=== PATIENT | female | born 1950 | race Caucasian/White ===

== ENCOUNTER → 2019-09-10 13:16 | Outpatient (CLI) | payer MEDICARE, OTHER, SELFPAY ==
--- NOTE | 2019-09-10 13:22 | CT_ITS ---
STUDY: CT MAXILLOFACIAL SINUSES REASON FOR EXAM: Female, 69 years old. Nasal polyp, headaches, left orbital pressure RADIATION DOSAGE (If Supplied By Facility): CTDIvol = ( 33.45 ) mGy, DLP = ( 759.64 ) mGycm TECHNIQUE: The patient was scanned in a multi detector CT scanner. High resolution axial imaging was performed without the administration of intravenous contrast material. Sagittal and coronal images were reconstructed. Individualized dose optimization techniques were used for this CT. COMPARISON: None. FINDINGS: FRONTAL SINUSES: The frontal sinuses are aplastic. ETHMOIDAL SINUSES: Normal aeration, without mucosal inflammatory disease. MAXILLARY SINUSES: Normal aeration, without mucosal inflammatory disease. SPHENOIDAL SINUSES: Normal aeration, without mucosal inflammatory disease. There is patency of the bilateral maxillary infundibuli with normal uncinate processes, ethmoid bullae, and hiatus semilunaris. Normal bilateral middle turbinates. Normal bilateral inferior turbinates. There is minimal nasal septal deviation toward the right. There is a polypoid filling defect of the anterior left nasal cavity measuring 2.1 x 1.1 x 2.3 cm. The visualized osseous structures are normal. The visualized bilateral orbital contents are normal. CT/Sinus/Facial Bone IMPRESSION: 1. Aplastic frontal sinuses. 2. There is a polypoid filling defect of the anterior left nasal cavity measuring 2.1 x 1.1 x 2.3 cm consistent with polyp. There is minimal associated nasal septal deviation toward the right. Electronically Signed: Daniel Pearce MD at 20:36 EST , Service support ,
--- NOTE | 2019-09-10 13:23 | RAD_ITS ---
STUDY: X-RAY - LEFT KNEE REASON FOR EXAM: Female, 69 years old. Left knee pain TECHNIQUE: 4 view(s) of the knee. COMPARISON: None. FINDINGS: Status post total left knee replacement changes seen with implants appearing in good position. There is no evidence of implant loosening or new associated fracture or dislocation. There is a small crescentic soft tissue calcification adjacent to the medial femoral epicondyles which may represent a Jerrell-Stieda calcification. RAD/Knee 4 or More Views IMPRESSION: Status post total left knee replacement changes seen with implants appearing in good position. No evidence of implant loosening or new associated fracture or dislocation. Small crescentic calcification adjacent to the medial femoral epicondyle which may represent a Jerrell-Stieda calcification. Electronically Signed: Daniel Pearce MD at 20:39 EST , Service support ,
== END ==
PROVIDERS: Family Provider Family Medicine; PCP Family Medicine; Referring Provider Otolaryngology; Visit Provider Otolaryngology
DX: J33.9 Nasal polyp, unspecified (principal); R51 Headache; M25.562 Pain in left knee
CPT/HCPCS: 70486; 73564

== ENCOUNTER → 2019-09-22 15:32 | Outpatient (CLI) | payer MEDICARE, OTHER, SELFPAY ==
[2017-08-21 19:38] VITALS: BMI 32.4
--- NOTE | 2019-09-22 10:00 | NAPO_PTH ---
PATIENT: CHRISTINE KUMAR LOC: [facility] U#:[id number] AGE/SX: 75/F ROOM: RE09/22/[address]: Dr. Erik Valverde MD : 1950 BED: DIS: SPEC #: [id number] RECD: 09/22/19 15:00 STATUS: ONESIMO RONIT #: [id number] [facility]: 09/22/19 10:[address]: Erik Valverde DEPT: SURGICAL PATHOLOGY RECD BY: Velma Mccormick ENTERED: 09/23/19 11:54 SP TYPE: IZAIAH POLYPS OTHR DR: Dr. Khanh Vidal MD Tissues: NASAL POLYP Procedures: PAS Fungus (control) Special Stain Group I Surgery Specimen Level IV HEADER OPERATION: Nasal polyp biopsy PRE-OP DIAGNOSIS: Left nasal polyp TISSUE SUBMITTED: Left nasal polyp for permanent pathology MICROSCOPIC DIAGNOSIS Nasal polyp, biopsy: A fragment of squamous mucosa with changes consistent with squamous papilloma with focal ulceration, acute inflammation, granulation tissue reaction and changes consistent with pyogenic granuloma. Special stain for fungi is negative for organisms; matched control is appropriate. Negative for malignancy. MARY GRACE:kary 09/24/19 MICROSCOPIC DESCRIPTION Slides are reviewed. GROSS DESCRIPTION Received in fixative is one container labeled with the patient's name and designated left nasal polyp. The specimen consists of a fragment of vo soft tissue measuring 0.4 x 0.3 x 0.1 cm. The specimen is totally submitted in one cassette. / MARY GRACE:kary 09/23/19 TC:1 CPT: 09198, 78546
== END ==
PROVIDERS: Family Provider Family Medicine; PCP Family Medicine; Referring Provider Otolaryngology; Visit Provider Otolaryngology
DX: J33.9 Nasal polyp, unspecified (principal)
CPT/HCPCS: 88304; 88305; 88312

== ENCOUNTER 2019-11-09 09:36 | Day surgery (SDC) | payer MEDICARE, OTHER, SELFPAY ==
--- NOTE | 2019-10-08 11:21 | EKG12_ITS ---
Test Reason : PRE OP Blood Pressure : / mmHG Vent. Rate : 071 BPM Atrial Rate : 071 BPM P-R Int : 158 ms QRS Dur : 084 ms QT Int : 386 ms P-R-T Axes : 049 043 074 degrees QTc Int : 419 ms Normal sinus rhythm Normal ECG Confirmed by LUCILLE SWENSON, SUNI ([id number]), senior editor KEN VELIZ ([id number]) on 10/09/2019 2:12:54 PM Referred By: Erik Valverde Confirmed By:SUNI ADKINS MD
[2019-10-08 13:17] LABS: Hematocrit 42.2 % (37-47); Hemoglobin 14.1 g/dL (12.0-15.0); Mean Corp Hgb Conc 33.4 g/dL (32-36); Mean Corpuscular Hgb 31.1 pg (27.0-32.0); Mean Platelet Vol. 11.2 fl (6.2-12.0); Platelet Count 325 K/mm3 (150-450); RBC Distribution Width CV 12.4 % (11.6-14.6); RBC Distribution Width SD 42.5 fl (35.1-43.9); Red Blood Count 4.54 M/mm3 (4.2-5.4); White Blood Count 16.4 K/mm3 (4.4-11.0)
[2019-10-08 13:35] LABS: Anion Gap 6 (5-15); BUN 19 mg/dL (7-18); BUN/Creat Ratio 24.2 RATIO (10-20); Calcium,Total 8.5 mg/dL (8.5-10.1); Chloride 95 mmol/L (98-107); Creatinine, Serum 0.78 mg/dL (0.55-1.02); EST Glomerular Filtration Rate 77 mL/min (>60); Est Glom Filt Rate - Afr Amer 94 mL/min (>60); Glucose 63 mg/dL (74-106); Potassium 3.4 mmol/L (3.5-5.1); Sodium Level 131 mmol/L (136-145)
[2019-11-09 10:03] VITALS: BP 130/67; PULSE 73; RESP 16; TEMP 36.4; O2SAT 96; BMI 28.5
[2019-11-09] MEDS: Lactated Ringers 1,000 ML 100 ML IV (10:18)
--- NOTE | 2019-11-09 11:20 | NAPO_PTH ---
PATIENT: CHRISTINE KUMAR LOC: [facility] [place] U[place][id number] AGE/SX: 69/F ROOM: RE11/09/[address]: Dr. Erik Valvedre MD : 1950 BED: DIS: 11/09/2019 SPEC #: [id number] RECD: 11/09/19 13:21 STATUS: ONESIMO RONIT #: [id number] [facility]: 11/09/19 11:[address]: Erik Valverde DEPT: SURGICAL PATHOLOGY RECD BY: Eriberto Rush ENTERED: 11/09/19 13:41 SP TYPE: IZAIAH POLYPS OTHR DR: Dr. Khanh Vidal MD Tissues: NASAL POLYP Procedures: Surgery Specimen Level III HEADER OPERATION: Endoscopic polypectomy PRE-OP DIAGNOSIS: Nasal cavity polyp, chronic sinusitis TISSUE SUBMITTED: Left medial turbinate neoplasm MICROSCOPIC DIAGNOSIS Left medial turbinate polyp, excision: Benign sinonasal polyp, inflamed. AM:kary 2/4/20 MICROSCOPIC DESCRIPTION Slides are reviewed. GROSS DESCRIPTION Received in fixative is one container labeled with the patient's name and designated medial turbinate neoplasm. The specimen consists of a glistening, polypoid fragment of vo tissue measuring 1.7 x 1.5 x 0.3 cm. The specimen is submitted in its entirety in one cassette. / AM:kary 11/09/19 TC:1 CPT: 33068
--- NOTE | 2019-11-09 11:27 | DCINST_ITS ---
You will use the following diet at home:: No restrictions Discharge Activity: Return to Normal Activity, - - No noseblowing Additional Activity Instructions:: Start saline irrigation 4x/day on 11/10/19. Allergies/Adverse Reactions: Allergies adhesive Allergy (Verified 11/09/19 10:03) Rash codeine Allergy (Verified 11/09/19 10:03) Hives fish oil Allergy (Verified 11/09/19 10:03) Anaphylaxis Iodinated Contrast Media [Iodinated Contrast Media - IV Dye] Allergy (Verified 11/09/19 10:03) Anaphylaxis Penicillins Allergy (Verified 11/09/19 10:03) Unknown Sulfa (Sulfonamide Antibiotics) Allergy (Verified 11/09/19 10:03) Hives azithromycin [From Zithromax Z-Mariusz] Adverse Reaction (Verified 11/09/19 10:03) Vomiting trazodone Adverse Reaction (Verified 11/09/19 10:03) SUICIDIAL Medications to take at Discharge Atorvastatin Calcium [Lipitor] 10 mg PO QHS 10/26/16 Duloxetine HCl 30 mg PO QHS 10/26/16 Duloxetine HCl 60 mg PO DAILY 10/26/16 Estradiol 1 mg PO DAILY 10/26/16 Gabapentin [Neurontin] 900 mg PO QHS 10/26/16 Meloxicam [Mobic] 15 mg PO DAILY 10/26/16 Oxybutynin [Ditropan] 10 mg PO QHS 10/26/16 cycloBENZAPRine HCl [Flexeril] 10 mg PO QHS 10/26/16 hydroCHLOROthiazide [Hydrochlorothiazide] 12.5 mg PO DAILY 10/26/16 Hydrocodone/Acetaminophen [Hydrocodone-Acetamin 10-325 mg] 1 ea PO Q8H PRN PRN 10/27/16 Latanoprost 0.005% [Xalatan Opthalmic] 1 drp EACHEYE QHS 08/21/17 zolpidem 5 mg tablet 5 mg PO QHS PRN 02/20/18 Primary Care Physician: Khanh Vidal MD [Primary Care Provider] - Test Results: Test results from this visit will be discussed in further detail at your follow- up appointment, if applicable.
[2019-11-09] MEDS: Oxymetazoline 0.05% 1 SPRAY SPRAY.BTL NASAL (12:00)
[2019-11-09] MEDS: Oxymetazoline 0.05% 1 SPRAY SPRAY.BTL 15 SPRAY (12:00)
--- NOTE | 2019-11-09 12:09 | PCM.OPRPT ---
Report of Operation Date of Procedure: 11/09/19 Pre-Operative Diagnosis: Left nasal polyp Post-Operative Diagnosis: same Surgery/Procedure Performed:: Endoscopic excision nasal mass (attached to left middle turbinate) Description of Surgical Findings:: Mass on left middle turbinate Type of Anesthesia:: General Anesthesiologist: Cali Hilliard Specimen's removed: left middle turbinate neoplasm Estimated Blood Loss (mL): minimal Description of Procedure: The patient was taken to the operating room on 11/09/19. She was placed in the supine position on the operating table. She was given sufficient general endotracheal anesthesia. The head of bed was elevated 30 degrees. The navigation system was placed and verified per protocol and found to be accurate. 0 and 30 degrees rigid nasal endoscopes were used throughout the entire case. The left middle turbinate uncinate process and polyps were injected with 1% lidocaine with epinephrine. After sufficient vasoconstriction, the mass was manipulated to see that it was emanating from the front face of the left middle turbinate. Again, a 0 degree rigid nasal endoscope was used for visualization. I then used a caudal elevator to excise the mucosa on the front face of the middle turbinate connecting the middle turbinate to the mass. I then went superiorly with the [place] and made incisions superiorly until they were connected. The mass was then removed with Jamie forceps. I then trimmed the mucosa of the anterior aspect of the middle turbinate using a sinus shaver. I cauterized a few bleeding areas with suction cautery. Suzy was then placed on the raw surface. The procedure was then terminated. The patient was then awoken and brought to the recovery room in stable condition. Blood loss minimal, replacement none. Sponge, needle, instrument count were correct at the end of the procedure.
[2019-11-09 12:17] VITALS: BP 120/64; BP 130/67; PULSE 79; RESP 20; TEMP 37; O2SAT 96
[2019-11-09 12:30] VITALS: BP 124/60; BP 130/67; PULSE 74; RESP 16; O2SAT 93
[2019-11-09 12:45] VITALS: BP 130/67; BP 136/67; PULSE 70; RESP 16; O2SAT 95
[2019-11-09 13:00] VITALS: BP 130/67; BP 133/66; PULSE 70; RESP 16; TEMP 36.8; O2SAT 95
[2019-11-09] MEDS: Acetaminophen 325 MG Tablet 650 MG PO (13:21)
[2019-11-09 13:59] VITALS: BP 130/67; BP 138/63; PULSE 72; RESP 16; TEMP 36.6; O2SAT 96
== END 2019-11-09 14:04 | disposition home or self-care (01) ==
LOC: SDC 09:37 → AC 09:38
PROVIDERS: Family Provider Family Medicine; PCP Family Medicine; Referring Provider Otolaryngology; Visit Provider Otolaryngology
PROC: (CPT 31237; principal; 2019-11-09 11:05)
DX: J33.0 Polyp of nasal cavity (principal); I10 Essential (primary) hypertension; E78.00 Pure hypercholesterolemia, unspecified; F41.9 Anxiety disorder, unspecified; F32.9 Major depressive disorder, single episode, unspecified; Z79.899 Other long term (current) drug therapy
CPT/HCPCS: 31237; 36415; 80048; 85027; 88304; 93005; J7120; J2405

== ENCOUNTER 2021-05-09 15:30 | Outpatient (RCR) | payer MEDICARE, OTHER, SELFPAY ==
--- NOTE | 2021-05-03 14:12 | HP.PTEVAL_ITS ---
Patient's Visit Information CHRISTINE KUMAR is a 70 year old F referred to Physical Therapy by TEREZA Chapman with a diagnosis of LBP with radiculopathy. Date of Evaluation: 05/03/21 Physical Therapist: Josh Chang, PT, ATC - Visit Plan Frequency: 2-3x /Week Duration: 4 Weeks Plan: SKTC/DKTC, postural education, core stab ex's, nustep, and HEP - Subjective Pt reports she has had LBP for 2 1/2 months which is progressively worsening. Pt notes she also has pain that radiates down her R LE all the way to the toes. Pt reports she gets increased pain when she attempts to ambulate or stand for a long period of time. Pt reports No PMHx of LBP of significance prior to this episode. Pt reports no recent xrays. Pt reports she has had injections in the past which have not had any benefit at this time. Pt reports sig sleep difficult y at this time secondary to pain. Pt reports sitting has 2 different effects on her. Pt reports when she walks for a long period of time she has to sit down. but if she sits for too long, the pain becomes severe. Pt reports her LBP is 4/10 pain at rest, however increases to 10/10 with prolongred ambulation - Pain LBP Pain Intensity (Out of 10): 4 Pain Intensity Range: 10 - Objective Neuro: B LE sensation is WNL to light touch. ROM: Pt has full ROM with flexion. Pt is severely limited with L/S ext. MMT: B hips are grossly 4/5 throughout. B knees are rated at 5/5 throughout. Repeated movements: SKTC/DKTC 10 sec x 3 ea decreased pain. Gait: Pt is able to ambulate approximately 100 ft until having to sit and rest secondary to pain - Balance/Special Test Scores Oswestry Low Back Score: 40 - Goals Goal 1:: Decrease LBP x 50% to aid with sleep Goal Time Frame: 4-6 Weeks Goal 2:: Decreaqse the frequency and intensity of R LE radiculopathy x 50% to aid with ambulations Goal 3:: Pt will be able to ambulate greater than 300 feet to aid with promoting community ambulation Goal Time Frame: 4-6 Weeks Goal 4:: I with HEP Goal Time Frame: 4-6 Weeks - Rehabilitation Potential Physical Therapy Diagnosis: Pt has LBP, decreased L/S ROM, and difficulty with ambulation secondary to DDD Rehabilitation Potential: Good - Anticipated Interventions Patient/Client Instruction: Educate patient on: Condition, Plan of Care For the Purpose of:: To improve self management Therapeutic Exercise to Include: Strength training, Balance training, Postural training, Flexibilty training, Gait and locomotor training, Active ROM, Dynamic Lumbar Stabilization For the Purpose of:: To decrease pain, To increase ROM, To improve muscle performance and motor function Thank you for the opportunity to evaluate your patient. For Medicare and Medicare HMO plans, please review the plan of care and approve it. It will need to be FAXED BACK to us at [phone] for Medicare purposes. For Medicare only, by signing this I certify the plan of care. Please let me know if there are questions or concerns regarding this plan of care. Physician Signature: Date:
--- NOTE | 2021-08-11 12:33 | HP.PT.NRP ---
CHRISTINE KUMAR was seen in my office for initial evaluation on 05/03/21. The following Plan of Care was established for this patient: Initial Frequency: 2-3x /Week Initial Duration: 4 Weeks Patient/Client Instruction: Educate patient on: Condition, Plan of Care For the Purpose of:: To improve self management Therapeutic Exercise to Include: Strength training, Balance training, Postural training, Flexibilty training, Gait and locomotor training, Active ROM, Dynamic Lumbar Stabilization For the Purpose of:: To decrease pain, To increase ROM, To improve muscle performance and motor function This patient was last seen in our office . Pertinent comments regarding their Physical therapy will appear below: Pt was treated for 2 PT visits secondary to low back pain through the date of 05/09/21. Pt has not returned through todays date and is discontinued at this time. At this point I will be discontinuing this patient from physical therapy. I would be happy to see this patient again in the future if found appropriate by the physician. Thank you! Josh Chang, PT, ATC Balance/Gait/Functional tests - Balance/Special Test Scores Oswestry Low Back Score: 40
== END 2021-05-09 19:00 | disposition home or self-care (01) ==
LOC: PT 15:30
PROVIDERS: PCP Internal Medicine; Referring Provider Nurse Practitioner Family; Visit Provider Nurse Practitioner Family
DX: M51.16 Intervertebral disc disorders with radiculopathy, lumbar region (principal); M43.16 Spondylolisthesis, lumbar region; M46.96 Unspecified inflammatory spondylopathy, lumbar region; M48.061 Spinal stenosis, lumbar region without neurogenic claudication
CPT/HCPCS: 97110; 97161

== ENCOUNTER → 2021-05-26 17:27 | Outpatient (CLI) | payer MEDICARE, OTHER, SELFPAY ==
--- NOTE | 2021-05-26 18:15 | MRI_ITS ---
STUDY: MRI LUMBAR SPINE WITHOUT CONTRAST REASON FOR EXAM: Female, 70 years old. Severe low back pain, prior fusion TECHNIQUE: Standardized fat and water weighted pulse sequences were obtained in the sagittal and axial planes. COMPARISON: 20 August 2014 FINDINGS: Appearance is stable since prior. There is laminectomy decompression of L3-L4 and L4-L5 with pedicular screw fusion of L3-L4 -- L5 and corresponding disc device placement. T12-L1: Normal endplates. Normal disc height, hydration and morphology. Normal bilateral facet joints. Normal central canal and bilateral lateral recesses. Normal bilateral intervertebral neural foramina. Normal lumbar lordosis. There is no substantial scoliosis. Normal conus medullaris that terminates at the L1-L2. L1-2: Degenerated endplates. Decreased disc height, hydration and degenerative morphology. Normal bilateral facet joints. Normal central canal and bilateral lateral recesses. Mild bilateral intervertebral neural foramina. L2-3: Normal endplates. Normal disc height, hydration and morphology. Normal bilateral facet joints. Normal central canal and bilateral lateral recesses. Normal bilateral intervertebral neural foramina. L3-4: Normal endplates. Normal disc height, hydration and morphology. Normal bilateral facet joints. Normal central canal and bilateral lateral recesses. Normal bilateral intervertebral neural foramina. L4-5: Normal endplates. Normal disc height, hydration and morphology. Normal bilateral facet joints. Normal central canal and bilateral lateral recesses. Normal bilateral intervertebral neural foramina. L5-S1: Normal endplates. Normal disc height, hydration and morphology. Normal bilateral facet joints. Normal central canal and bilateral lateral recesses. Mild bilateral intervertebral neural foramina. Normal visualized sacral ala. Normal visualized paraspinous soft tissue structures. MRI/Spine Lumbar (Routine) IMPRESSION: 1. Stable appearance since 2013. 2. Expected appearance of patent fully decompressed thecal sac at L3-L5 with pedicular screw fusion. 3. No neural compression. 4. Age-appropriate spondylosis. Electronically Signed: Allie Marshall MD at 18:18 EDT Tel , Service support ,
== END ==
PROVIDERS: PCP Internal Medicine; Referring Provider Anesthesiology Pain Medicine; Visit Provider Anesthesiology Pain Medicine
DX: M51.17 Intervertebral disc disorders with radiculopathy, lumbosacral region (principal)
CPT/HCPCS: 72148

== ENCOUNTER 2021-11-07 13:57 | Outpatient (CLI) | payer MEDICARE, OTHER, SELFPAY ==
--- NOTE | 2021-11-07 14:14 | RAD_ITS ---
STUDY: X-RAY - PELVIS REASON FOR EXAM: Female, 71 years old. PAIN TECHNIQUE: One view of the pelvis was obtained. COMPARISON: None. FINDINGS: There is a non-specific bowel gas pattern. Normal visualized soft tissue structures. There is diffuse demineralization of the osseous structures. Surgical hardware in the lower lumbar spine free of complication There is mild osteoarthritic changes. Normal visualized bilateral superior and inferior pubic rami. Normal pubic symphysis. Normal ischial tuberosities. Normal visualized right femoral head. Normal right acetabulum. There is mild articular joint space narrowing of the right hip. Normal visualized left femoral head. Normal left acetabulum. There is mild articular joint space narrowing of the left hip. RAD/Pelvis 1 or 2 Views IMPRESSION: Age consistent degenerative changes, no acute findings. Electronically Signed: Chon Mckeon MD at 17:23 EST ,
[2021-11-07 17:54] LABS: Absolute Lymphocyte Count 19.31 X10^3/uL (0.83-4.51); Absolute Neutrophil Count 4.2 X10^3/uL (2.0-7.7); Basophil# 0.05 X10^3/uL; Basophil% 0.2 % (0-1); Eosinophil# 0.26 X10^3/uL; Hematocrit 38.9 % (37-47); Hemoglobin 13.4 g/dL (12.0-15.0); Lymphocyte # 19.31 X10^3/ul (0.83-4.51); Lymphocyte % 76.8 % (19-41); Mean Corp Hgb Conc 34.4 g/dL (32-36); Mean Corpuscular Hgb 31.3 pg (27.0-32.0); Mean Corpuscular Volume 90.9 fL (81-99); Mean Platelet Vol. 10.8 fl (6.2-12.0); Monocyte# 1.26 X10^3/uL; NRBC Flagged by Analyzer 0 % (0-5); Neutrophil # 4.18 X10^3/uL (2.7-7.7); Neutrophil % 16.7 % (47-70); POSITIVE DIFFERENTIAL YES; Platelet Count 349 K/mm3 (150-450); RBC Distribution Width SD 46.8 fl (35.1-43.9); Red Blood Count 4.28 M/mm3 (4.2-5.4); White Blood Count 25.1 K/mm3 (4.4-11.0)
[2021-11-07 18:10] LABS: Differential Indicated SCAN CRITERIA MET
[2021-11-07 18:34] LABS: ALB/GLOB Ratio 1.2 RATIO (0.9-2.4); AST(SGOT) 11 U/L (15-37); Alanine Aminotransfer ALT/SGPT 18 U/L (13-56); Albumin, Serum 3.6 g/dL (3.2-5.0); Alkaline Phosphatase 77 U/L (45-117); Anion Gap 6 (5-15); BUN 23 mg/dL (7-18); BUN/Creat Ratio 22.8 RATIO (10-20); CRP < 2.90 mg/L (0.0-3.0); Calcium,Total 8.8 mg/dL (8.5-10.1); Chloride 98 mmol/L (98-107); Creatinine, Serum 1.01 mg/dL (0.55-1.02); EST Glomerular Filtration Rate 58 mL/min (>60); Est Glom Filt Rate - Afr Amer 70 mL/min (>60); Globulin 3.1 g/dL (2.2-4.2); Glucose 88 mg/dL (74-106); Potassium 3.5 mmol/L (3.5-5.1); Protein, Total 6.7 g/dL (6.4-8.2); Rheumatoid Factor < 10.0 IU/mL (<15); Sodium Level 131 mmol/L (136-145)
[2021-11-07 18:35] LABS: Differential Comment SCANNED; Erythrocyte Sedimentation Rate 5 mm/hr (0-30)
[2021-11-08 09:08] LABS: Hepatitis B Surface Antibody Non-Reactive; Hepatitis B Surface Antigen Non-Reactive (Nonreactive); Hepatitis C Antibody Non-Reactive (Nonreactive)
[2021-11-09 15:08] LABS: SJOGREN'S Anti-SS-A test < 0.2 AI (0.0-0.9); SJOGREN'S Anti-SS-B test < 0.2 AI (0.0-0.9)
[2021-11-09 15:50] LABS: ANTINUCLEAR ANTIBODIES DIRECT Negative (Negative)
[2021-11-10 14:11] LABS: CCP IgG Antibodies 25 units (0-19)
== END 2021-11-07 23:59 | disposition short-term general hospital (02) ==
LOC: MTLAB 14:02
PROVIDERS: PCP Internal Medicine; Referring Provider Internal Medicine Rheumatology; Visit Provider Internal Medicine Rheumatology
DX: M06.4 Inflammatory polyarthropathy (principal); M79.7 Fibromyalgia; M17.0 Bilateral primary osteoarthritis of knee; K58.2 Mixed irritable bowel syndrome; H40.9 Unspecified glaucoma; F41.9 Anxiety disorder, unspecified; N32.81 Overactive bladder; I10 Essential (primary) hypertension; E78.5 Hyperlipidemia, unspecified
CPT/HCPCS: 36415; 72170; 80053; 85025; 85652; 86038; 86140; 86200; 86235; 86431; 86706; 86803; 87340

== ENCOUNTER 2022-03-12 12:55 | Outpatient (RCR) | payer MEDICARE, OTHER, SELFPAY ==
--- NOTE | 2022-03-12 13:55 | HP.PTEVAL ---
Patient's Visit Information CHRISTINE KUMAR is a 71 year old F referred to Physical Therapy by TEREZA Chapman with a diagnosis of MULTIPLE LUMBAR CONDITIONS INCLUDING RADICULOPATHY AND OTHER -SEE ORDER. Date of Evaluation: 03/12/22 Physical Therapist: Noemi Doll, PT, Cert MDT - Visit Plan Frequency: 2-3x /Week Duration: 4-6 Weeks Plan: PLEASE START VERY SLOW BECAUSE PATIENT HAD A BAD PAST EXPERIENCE WITH AQUATIC THERAPY AND SHE HAS GREAT FEAR OF DELAYED ONSET OF PAIN. AQUATIC THERAPY FOR PAIN RELEIF, POSTURE CORRECTION/STRENGTHENING, INSTRUCTION IN APPROPRIATE BODY MECHANICS AND ACTIVITY MODIFICATIONS. DLS STARTING WITH A NEUTRAL SPINE PROGRESSING ROM TOLERATED. WILL LE ROM, STRETCHING AND STRENGTHENING. HEP INSTRUCTION. - Subjective Work/Leisure: RETIRED. Disability: WENT ON DISABILITY AT AGE 56 FOR HER BACK CONDITION AND FIBROMYALGIA. Present symptoms: PAIN AND WEAKNESS IN BACK AND LEGS. Present since: CHRONIC - SINCE AGE 36. Pain Scale: WORST 9/10, LEAST 5/10. Currently: 6/10. Commenced as a result of: DEGENERATIVE. Symptoms at onset: LOW BACK PAIN. Worse: GETTING OUT OF BED AND PRETTY MUCH DOING ANYTHING. DOING LAUNDRY AND WALKING THE DOG. I HAVE NO LIFE. THIS YEAR WE HAVE BASICALLY STOPPED GOING OUT. Better: PAIN MEDICINE. Disturbed sleep: YES. Previous history/Previous treatment: LUMBAR FUSION 2008. MANY BACK INJECTION WITH THE MOST RECENT BEING ABOUT 4 MONTH AGO WITH MODERATE RELIEF. PHYSICAL THERAPY. H/O CHIROPRACTIC - NONE FOR 20 YEARS. ACCUPUNCTURE. Coughing/sneezing/straining: POSITIVE. Gait: USES A CANE OFTEN BUT DID NOT BRING IT TODAY. NO RECENT FALLS. NO FALLS FOR A FEW YEARS. Bowel or Bladder Dysfunction: NO. Unexplained weight loss: NO. Imaging: LUMBAR MRI NOV 2021. PMH/Recent major surgery: POLYARTHRITIS, WILL TKR'S 2008 AND 2009. HTN. MAJOR DEPRESSION. - Objective Sitting/Standing Posture: POOR. REDUCED LORDOSIS BUT NO RELEVANT LATERAL SHIFT. Active Correction of posture: WORSE. Other Observations: THIS PATIENT AMBULATES INDEP'LY INTO PT TODAY WITHOUT ANY ASSISTIVE DEVICES, WIDE BASE OF SUPPORT, DECREASED WILL STRIDE LENGTH AND DECREASED CADANCE. NO LOB. PATIENT IS ABLE TO INDEP'LY ABLE TO TRANSFER FROM SIT TO STAND BUT UE DEPENDENT TO DO SO. Sensory deficit: WILL LE LIGHT TOUCH SENSATION IS GROSSLY INTACT AND SYMMETRICAL. ROM deficit: TIGHT WILL LE HS'S AND GASTROC SOLEUS COMPLEX'S. Motor deficit: WILL LE WEAKNESS. WILL HIPS GROSSLY 4-/5, KNEES 4-/5 (IN AVAILABLE ROM) AND ANKLES 5/5. Dural Signs: POSITIVE WILL LE'S. Lumbar mvmt loss: flex - MOD. ext - MAINE. R SG - MOD. L SG - MAINE. PATIENT C/O INCREASED LBP WITH LUMBAR ROM TESTING ALL PLANES. THIS PT GAVE FREQUENT CUEING TO TRY TO AVOID PAIN WITH TESTING BUT PATIENT TENDS TO MOVE IMPULSIVELY. Core strength: POOR. TREATMENT: NEUROMUSCULAR REEDUCATION - RETRAINING OF MVMT AND POSTURE FOR SITTING, LYING AND STANDING ACTIVITIES. OTHER: PATIENT GOES BY KARI. - Balance/Special Test Scores Oswestry Low Back Score: 29 TUG Test Time Seconds: 16.31 30 Second Chair Rise Test Seconds: 4 - Goals Goal 1:: DECREASE C/O LOW BACK AND WILL LE SX'S. Goal Time Frame: 4-6 Weeks Goal 2:: IMPROVE PERSONAL CARE, LIFTING, WALKING, SITTING, STANDING, SLEEP, SOCIAL LIFE, TRAVEL AND HOMEMAKING FUNCTION Goal Time Frame: 4-6 Weeks Goal 3:: PATIENT WILL BE INDEP WITH A HOME AND/OR WATER EX PROGRAM FOR CONTINUED IMRPOVEMENT ONCE FORMAL PHYSICAL THERAPY CONCLUDES. Goal Time Frame: 4-6 Weeks - Anticipated Interventions Patient/Client Instruction: Educate patient on: Condition, Plan of Care, Risk Factors For the Purpose of:: To improve self management Therapeutic Exercise to Include: Strength training, Body mechanics, Postural training, Flexibilty training, Gait and locomotor training, Neuromotor development, In an aquatic setting, Dynamic Lumbar Stabilization For the Purpose of:: To decrease pain, To improve muscle performance and motor function, To increase tolerance to activity/condition/position, To improve ability of physical actions for home/community/work/leisure, To improve gait and locomotor functions Thank you for the opportunity to evaluate your patient. For Medicare and Medicare HMO plans, please review the plan of care and approve it. It will need to be FAXED BACK to us at [phone] for Medicare purposes. For Medicare only, by signing this I certify the plan of care. Please let me know if there are questions or concerns regarding this plan of care. Physician Signature: Date:
--- NOTE | 2022-03-29 12:36 | HP.PT.NRP ---
CHRISTINE KUMAR was seen in my office for initial evaluation on 03/12/22. The following Plan of Care was established for this patient: Initial Frequency: 2-3x /Week Initial Duration: 4-6 Weeks Patient/Client Instruction: Educate patient on: Condition, Plan of Care, Risk Factors For the Purpose of:: To improve self management Therapeutic Exercise to Include: Strength training, Body mechanics, Postural training, Flexibilty training, Gait and locomotor training, Neuromotor development, In an aquatic setting, Dynamic Lumbar Stabilization For the Purpose of:: To decrease pain, To improve muscle performance and motor function, To increase tolerance to activity/condition/position, To improve ability of physical actions for home/community/work/leisure, To improve gait and locomotor functions This patient was last seen in our office . Pertinent comments regarding their Physical therapy will appear below: PATIENT WAS SEEN FOR INITAL EVALUATION AND THEN CANCELLED OR FAILED TO SHOW FOR SEVERAL SCHEDULED KIET'TS. I RECEIVED A NOTE TODAY STATING: PATIENT CANCELLED ALL REMAINING KIET'TS. JUST DOESN'T HAVE THE TIME WITH THE [facility]. OKAY TO DISCHARGE. WILL GET A NEW ORDER WHEN SHE IS READY TO COME BACK. At this point I will be discontinuing this patient from physical therapy. I would be happy to see this patient again in the future if found appropriate by the physician. Thank you! Noemi Doll, PT, Cert MDT Balance/Gait/Functional tests - Balance/Special Test Scores Oswestry Low Back Score: 29 TUG Test Time Seconds: 16.31 Tug Test: 20-30sec.=variable mobility 30 Second Chair Rise Test Seconds: 4
== END 2022-03-12 19:00 | disposition home or self-care (01) ==
LOC: PT 12:55
PROVIDERS: PCP Internal Medicine; Referring Provider Nurse Practitioner Family; Visit Provider Nurse Practitioner Family
DX: M51.16 Intervertebral disc disorders with radiculopathy, lumbar region (principal); M43.16 Spondylolisthesis, lumbar region; M43.06 Spondylolysis, lumbar region; M46.96 Unspecified inflammatory spondylopathy, lumbar region; M41.86 Other forms of scoliosis, lumbar region; M96.1 Postlaminectomy syndrome, not elsewhere classified; M47.817 Spondylosis without myelopathy or radiculopathy, lumbosacral region
CPT/HCPCS: 97162

== ENCOUNTER 2022-06-25 09:41 | Day surgery (SDC) | payer MEDICARE, OTHER, SELFPAY ==
[2022-06-25] MEDS: Lactated Ringers 1,000 ML 15 ML IV (10:05)
[2022-06-25 10:20] VITALS: BP 152/79; PULSE 69; RESP 17; TEMP 36.7; O2SAT 98; BMI 29.9
--- NOTE | 2022-06-25 10:59 | RAD_ITS ---
PROCEDURE: CAUDAL EPIDURAL STEROID INJ INDICATION: CAUDAL EPIDURAL STEROID INJ EXAMINATION/TECHNIQUE: X-RAY - IR Fluoro Guide Injection Spine COMPARISON: 05/26/2021. FLUOROSCOPY TIME: 3 seconds. FLUOROSCOPY DOSE: 3.11 mGy FINDINGS: 2 spot fluoroscopic images were obtained intraoperatively. Lateral view of the sacrum and coccyx was obtained demonstrating demonstrate contrast injection. No radiologist was present for the procedure, please refer to operative report for details. RAD/Fluor Guidance for Spine Inj IMPRESSION: Please refer to operative report for details. Electronically Signed: Abelardo Powell MD at 13:30 EDT ,
[2022-06-25] MEDS: Lidocaine 1% (30 ml sdv) 30 ML Vial INFILT (11:10)
[2022-06-25] MEDS: 0.9% Normal Saline (Pres. free 10 ML Vial (11:10)
[2022-06-25] MEDS: MethylPREDNISolone Acetate 80 MG/ML Vial (11:10)
--- NOTE | 2022-06-25 11:13 | OP.PCM_ITS ---
Report of Operation Date of Procedure: 06/25/22 Pre-Operative Diagnosis: Lumbosacral radiculopathy, lumbosacral degenerative di sc disease, lumbosacral spinal stenosis Post-Operative Diagnosis: Lumbosacral radiculopathy, lumbosacral degenerative disc disease, lumbosacral spinal stenosis Surgery/Procedure Performed:: Caudal epidural steroid injection under fluoroscopic guidance Type of Anesthesia: MAC Estimated Blood Loss (mL): Minimal Description of Procedure: DESCRIPTION OF PROCEDURE: History and physical of today was reviewed. Risks and benefits of the procedure were explained. The patient understood and agreed to proceed. Informed consent was obtained. IV inserted per routine protocol. The patient was taken to the operating room and placed in the prone position with a pillow positioned underneath the abdomen. The lower back and tailbone area was prepped and draped in a sterile fashion using iodine x3. Under fluoroscopy guidance on a lateral view, the caudal space was identified. The skin and subcutaneous tissue was anesthetized with approximately 3 mL of 1% lidocaine using a 25-gauge regular needle. Under direct visualization with fluoroscopy, using a 22-gauge 3-1/2-inch spinal needle, the needle was advanced via the skin through the sacral hiatus. The tip of the needle was passed through the sacrococcygeal ligament and advanced to approximately S4 area. After negative aspiration of blood or CSF, a total of 3 mL of contrast was injected to confirm correct placement of the needle as well as cephalad spread. The spread was followed to approximately L5 area. After confirmation on AP as well as lateral view and repeated negative aspiration, a total of 15 mL of preservative-free 0.125% Marcaine with 80 mg of Depo-Medrol was injected easily. The needle was then removed intact. The patient experienced no sign or symptoms of intrathecal or intravascular injection. The patient experienced no paresthesia. The procedure was completed without any apparent difficulty or any complications. The patient appeared to tolerate it well. ASSESSMENT AND PLAN: This is a 72-year-old female with lumbosacral radiculopathy, lumbosacral degenerative disc disease, lumbosacral spinal stenosis status post caudal epidural steroid injection, patient will continue her current medications, patient will follow in approximately 2 weeks for reevaluation. Complications None
[2022-06-25 11:16] VITALS: BP 137/65; PULSE 66; RESP 16; TEMP 36.6; O2SAT 100
[2022-06-25 11:20] VITALS: BP 137/65; BP 138/71; PULSE 67; RESP 16; O2SAT 97
[2022-06-25 11:25] VITALS: BP 131/66; BP 137/65; PULSE 72; RESP 16; O2SAT 98
[2022-06-25 11:30] VITALS: BP 134/59; BP 137/65; PULSE 67; RESP 16; TEMP 36.3; O2SAT 97
[2022-06-25 11:56] VITALS: BP 137/65
== END 2022-06-25 11:59 | disposition home or self-care (01) ==
LOC: SDC 09:41 → AC 09:46
PROVIDERS: PCP Internal Medicine; Referring Provider Anesthesiology Pain Medicine; Visit Provider Anesthesiology Pain Medicine
PROC: 3E0S3BZ Introduction of Anesthetic Agent into Epidural Space, Percutaneous Approach (ICD-10-PCS; CPT 62282; principal; 2022-06-25 10:45)
DX: M48.07 Spinal stenosis, lumbosacral region (principal); M51.17 Intervertebral disc disorders with radiculopathy, lumbosacral region; I10 Essential (primary) hypertension; Z79.891 Long term (current) use of opiate analgesic; G89.4 Chronic pain syndrome; M53.3 Sacrococcygeal disorders, not elsewhere classified; M17.11 Unilateral primary osteoarthritis, right knee; M17.12 Unilateral primary osteoarthritis, left knee; M96.1 Postlaminectomy syndrome, not elsewhere classified; M70.71 Other bursitis of hip, right hip; Z98.1 Arthrodesis status; Z85.6 Personal history of leukemia
CPT/HCPCS: 62323; 64483; 77003; J7120; J2405; J3490

== ENCOUNTER 2023-05-20 14:48 | Inpatient (IN) | payer MEDICARE, OTHER, SELFPAY ==
[2023-05-20 14:50] VITALS: BP 131/88; PULSE 81; RESP 16; TEMP 36.6; O2SAT 99; BMI 29.9
--- NOTE | 2023-05-20 16:37 | CT_ITS ---
We are attempting to reach an attending provider to discuss findings. An addendum with communication details will be sent when the communication is complete. EXAM: CT ABDOMEN AND PELVIS WITHOUT INTRAVENOUS CONTRAST CLINICAL INDICATION: Pain TECHNIQUE: Helically acquired images were obtained of the abdomen and pelvis without intravenous contrast. This CT exam was performed using one or more of the following dose reduction techniques: automated exposure control, adjustment of the mA and/or kV according to patient size, and/or use of iterative reconstruction technique. COMPARISON: No relevant prior studies available. FINDINGS: LOWER THORAX: Unremarkable. Lung bases are clear. No cardiomegaly. No significant pericardial effusion. ABDOMEN: LIVER: Unremarkable. Homogeneous. GALLBLADDER AND BILE DUCTS: Unremarkable. No calcified gallstones. No gallbladder distention or wall edema. No intra- or extrahepatic biliary ductal dilation. PANCREAS: Unremarkable. No focal cystic mass. SPLEEN: Unremarkable. Normal size without focal cystic or solid mass. ADRENALS: Unremarkable. No nodules. KIDNEYS AND URETERS: Unremarkable. Normal renal size and position. No hydronephrosis. STOMACH AND BOWEL: There is a small amount of dependent gas seen within the ascending colon which may represent gas within stool or perhaps pneumatosis. There is minimal haziness in the mesentery of the right midabdomen. No stomach or bowel distention. No focal inflammatory change. PELVIS: APPENDIX: There are surgical clips from the cecum from previous appendectomy. BLADDER: Unremarkable. REPRODUCTIVE: Patient status post hysterectomy. ABDOMEN and PELVIS: INTRAPERITONEAL SPACE: See above. BONES/JOINTS: There is hardware from posterior fusion of L3-L5. No suspicious lytic or blastic abnormality. SOFT TISSUES: Unremarkable. No discrete abdominal or pelvic wall hernia. VASCULATURE: Unremarkable. Abdominal aorta is non-dilated. LYMPH NODES: Unremarkable. No enlarged lymph nodes. CT/Abdomen/Pelvis without Cont IMPRESSION: Dependent gas in the ascending colon which may represent gas within stool or perhaps minimal pneumatosis which can be seen in bowel ischemia. There is no wall thickening identified however there is a very trace inflammation in the surrounding mesentery. No fluid collections are identified. There are no other acute abnormalities. Electronically Signed: Osito Steward MD at 18:20 EDT ,
--- NOTE | 2023-05-20 16:37 | ED.VIS.GI ---
HPI HPI - GI History of Present Illness Chief Complaint: Abd Pain Detail of Chief Complaint: Abdominal pain Informant: patient Narrative Narrative: Patient presents with abdominal pain that is made worse over the last 3 days. Patient states that she has had a flare of her IBS for the last 3 months. She has been having pain with eating and a lot of gas and bloating. Has been having diarrhea for 3 months and every time she eats. Patient has not been able to eat since yesterday. She denies fevers. She denies vomiting. Patient's had prior hysterectomy and appendectomy. Patient still has her gallbladder. Patient was seen by her PCP and referred to the emergency department for evaluation. [facility] Medical History (Updated 05/20/23 @ 19:[address] Sandhya Almaraz, ) Abnormal stress test Ambulates with cane Anxiety Arthritis Back pain Blackout Bladder disease Chronic back pain Depression Difficulty swallowing Fibromyalgia History of IBS History of leukemia History of stress test Hypertension IBS (irritable bowel syndrome) Insomnia Non-smoker Osteoarthritis Severe depression Syncope Uses wheelchair Wears glasses Home Medications atorvastatin 10 mg tablet 10 mg PO QHS CHOLESTEROL 10/26/16 [History Last Taken 08/20/17] estradiol 1 mg tablet 1 mg PO DAILY HORMONE 10/26/16 [History Last Taken 08/20/17] gabapentin 300 mg capsule 900 mg PO QHS NERVE PAIN 10/26/16 [History Last Taken 08/20/17] hydrochlorothiazide 12.5 mg capsule 12.5 mg PO DAILY BLOOD PRESSURE 10/26/16 [History Last Taken 08/21/17] meloxicam 7.5 mg tablet 15 mg PO DAILY PAIN 10/26/16 [History Last Taken 08/21/17] oxybutynin chloride 5 mg tablet 10 mg PO QHS BLADDER 10/26/16 [History Last Taken 08/20/17] hydrocodone 10 mg-acetaminophen 325 mg tablet 1 ea PO Q8H PRN PRN Pain 10/27/16 [History Last Taken 08/21/17] latanoprost 0.005 % eye drops 1 drp EACHEYE QHS GLAUCOMA 08/21/17 [History Last Taken 08/20/17] zolpidem 5 mg tablet 5 mg PO QHS PRN Sleep 02/20/18 [History Last Taken Unknown] benazepril 10 mg tablet 10 mg PO DAILY 06/22/22 [History Last Taken 06/25/22] duloxetine 30 mg capsule,delayed release 30 mg PO DAILY 06/22/22 [History Last Taken Unknown] duloxetine 60 mg capsule,delayed release 60 mg PO QHS 06/22/22 [History Last Taken Unknown] Allergy/AdvReac Type Severity Reaction Status Date / Time adhesive Allergy Rash Verified 05/20/23 14:52 codeine Allergy Hives Verified 05/20/23 14:52 fish oil Allergy Anaphylaxis Verified 05/20/23 14:52 Iodinated Contrast Media Allergy Anaphylaxis Verified 05/20/23 14:52 [Iodinated Contrast Media - IV Dye] Penicillins Allergy Unknown Verified 05/20/23 14:52 Sulfa (Sulfonamide Allergy Hives Verified 05/20/23 14:52 Antibiotics) azithromycin AdvReac Vomiting Verified 05/20/23 14:52 [From Zithromax Z-Mariusz] trazodone AdvReac SUICIDIAL Verified 05/20/23 14:52 Family History Father Myocardial infarction, Onset Age: 85 Mother Heart valve disease Surgical History History of arthroscopy of left knee History of arthroscopy of right knee History of back surgery History of bilateral breast reduction surgery History of cardiac catheterization (~03/19/17) History of ear surgery History of hysterectomy History of lumpectomy of left breast History of repair of right rotator cuff History of total bilateral knee replacement (TKR) Hx of appendectomy Social History Smoking Status: Never smoker alcohol intake: never substance use type: does not use ROS ROS ED Review of Systems ROS Unobtainable: other Constitutional Constitutional ED: Reports lethargy; Denies chills, fever(s), sweats or weight loss Eyes Eyes: Denies blurry vision, change in vision or diplopia ENT ENT ED: Denies rhinorrhea or sore throat Cardiovascular Cardiovascular: Denies chest pain, orthopnea or racing heartbeat Respiratory/Chest Respiratory/Chest: Denies cough, dyspnea, dyspnea on exertion, orthopnea or sputum Gastrointestinal Gastrointestinal: Reports abdominal pain and diarrhea; Denies nausea or vomiting Genitourinary Genitourinary ED: Denies dysuria, hematuria or urinary frequency Musculoskeletal Musculoskeletal: Denies arthralgias, back pain, myalgias or neck pain Integumentary Denies abscess, Abrasions or rash Neurologic Neurologic: Denies headache(s) or weakness Psychiatric Psychiatric: Denies anxiety, depression or suicidal thoughts Endocrine Endocrinology: Denies polydipsia, polyphagia or polyuria Hematologic/Lymphatic Hematologic/Lymphatic: Denies easy bleeding, easy bruising or lymphadenopathy Allergic/Immunologic Allergic/Immunologic ED: Denies mouth swelling, tongue swelling or urticaria EXAM Physical Exam Const Vital Signs: 05/20/23 14:50 Temperature 97.8 F Temperature Source Temporal Pulse Rate 81 Respiratory Rate 16 Blood Pressure 131/88 H Blood Pressure Mean 102 Pulse Ox 99 Oxygen Delivery Method Room Air Positive well nourished and well developed General Appearance ED: well developed and NAD HEENT Reports TM's clear and moist mucous membranes normocephalic and atraumatic; Negative for trauma or tenderness Tympanic Membrane ED: Yes TM's clear Eyes PERRL and EOMs intact bilaterally General Eye ED: Negative for pale conjunctiva or scleral icterus Neck no lymphadenopathy, supple and no JVD General: Negative for tenderness Chest Wall inspection of chest normal and palpation of chest normal Chest: Negative for tenderness Resp normal respiratory effort and clear to auscultation bilaterally Effort and Inspection: Negative for respiratory distress or pain with movement Auscultation: Negative for rhonchi, wheezes or diminished lung sounds Cardio regular rate, regular rhythm, S1 normal heart sound, S2 normal heart sound and no murmurs Peripheral Pulses: pulses 2+ throughout GI normal to inspection, nondistended, normoactive bowel sounds, soft to palpation, non-distended and no masses GI Narrative: Tenderness to right upper quadrant with guarding. She had a positive Caicedo sign. No rebound, rigidity, or peritoneal signs. No mass palpated. Back/Spine no CVA tenderness and no thoracic nor lumbar tenderness Extremity normal to inspection General Extremety ED: Negative for edema General Extremity: Negative for edema Neuro oriented x3, CN's II-XII intact bilaterally, no sensory deficits noted and gait normal Sensorium / Orientation: awake, alert, oriented to person, oriented to place and oriented to time Motor Exam: strength 5/5 throughout and strength abnormal Psych mental status grossly normal Skin no rashes or lesions noted and no wounds MDM MDM MDM Narrative Medical decision making narrative: Patient presents with abdominal pain and history of IBS. Abdominal pain worse over the last 3 days. Patient with diarrhea. In the differential would be IBS versus gallbladder disease versus ischemic bowel disease versus infectious colitis versus small bowel obstruction or other process. IV line established. 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 Patient chemistries unremarkable. LFTs were normal. Lactate was normal. Lipase was normal. Urinalysis is unremarkable. CT scan of the abdomen pelvis was read by radiology as possible pneumatosis coli in the ascending colon with small amount of inflammatory change within the mesentery. I discussed case with general surgeon on-call Dr. Escobar who recommended admission to medicine and he will consult. Also recommended starting patient on IV antibiotics. I did send stool for C. difficile and enteric pathogens. Lab Data Attestation: I reviewed the patient's lab results. Labs: Laboratory Results - last 24 hr 05/20/23 05/20/23 17:31 18:25 WBC 16.6 H RBC 3.85 L Hgb 11.6 L Hct 35.8 L MCV 93.0 MCH 30.1 MCHC 32.4 RDW Std Deviation 43.9 RDW Coeff of Marvin 12.9 Plt Count 301 MPV 11.4 Immature Gran % (Auto) 0.200 Neut % (Auto) 17.6 L Lymph % (Auto) 74.4 H [place] % (Auto) 5.2 Eos % (Auto) 2.2 Baso % (Auto) 0.4 Absolute Neuts (auto) 2.9 Absolute Lymphs (auto) 12.33 H Nucleated RBC % 0 Differential Comment Sodium 136 Potassium 3.6 Chloride 101 Carbon Dioxide 30.0 Anion Gap 5 BUN 12 Creatinine 0.76 Estim Creat Clear Calc 40.81 Est GFR (MDRD) Af Amer 96 Est GFR (MDRD) Non-Af 79 BUN/Creatinine Ratio 15.7 Glucose 95 Lactic Acid 0.7 Calcium 8.3 L Total Bilirubin 0.40 AST 22 ALT 26 Alkaline Phosphatase 77 Total Protein 6.2 L Albumin 3.3 Globulin 2.9 Albumin/Globulin Ratio 1.1 Lipase 15 Urine Color Yellow Urine Clarity Clear Urine pH 8.0 Ur Specific [place] 1.010 Urine Protein Negative Urine Glucose (UA) Normal Urine Ketones 5 H Urine Occult Blood Negative Urine Nitrite Negative Urine Bilirubin Negative Urine Urobilinogen Normal Ur Leukocyte Esterase Negative Urine RBC 0 SEEN Urine WBC 0 SEEN Ur Squamous Epith Cells 0 SEEN Urine Bacteria 0 SEEN Urine Mucus 0 SEEN Radiography Diagnostic Testing: Clinical Impression(s) from Imaging Studies Abdomen/Pelvis CT 05/20/23 16:37 IMPRESSION: Dependent gas in the ascending colon which may represent gas within stool or perhaps minimal pneumatosis which can be seen in bowel ischemia. There is no wall thickening identified however there is a very trace inflammation in the surrounding mesentery. No fluid collections are identified. There are no other acute abnormalities. Electronically Signed: Osito Steward MD at 18:20 EDT , ADDENDUM: 05/20/23 1833 IMPRESSION: Dependent gas in the ascending colon which may represent gas within stool or perhaps minimal pneumatosis which can be seen in bowel ischemia. There is no wall thickening identified however there is a very trace inflammation in the surrounding mesentery. No fluid collections are identified. There are no other acute abnormalities. N.B. : The above Results were Read Back by Osito Steward MD to Sandhya Almaraz DO, and understanding confirmed on 05/20/2023 18:26:31 (ET). Electronically Signed: Osito Steward MD at 18:20 EDT , Discharge Plan Triage Chief Complaint: Abd Pain ED Provider: Sandhya Almaraz Dx/Rx/DC Orders Clinical Impression: Diarrhea, History of leukemia, Abdominal pain Prescriptions: No Action zolpidem 5 mg tablet 5 mg PO QHS PRN (Reason: Sleep) atorvastatin 10 MG tablet 10 mg PO QHS Patient Comments: CHOLESTEROL meloxicam 7.5 MG tablet 15 mg PO DAILY Patient Comments: PAIN estradiol 1 MG tablet 1 mg PO DAILY Patient Comments: HORMONE hydrochlorothiazide 12.5 MG capsule 12.5 mg PO DAILY Patient Comments: BLOOD PRESSURE gabapentin 300 MG capsule 900 mg PO QHS Patient Comments: NERVE PAIN oxybutynin chloride 5 MG tablet 10 mg PO QHS Patient Comments: BLADDER hydrocodone-acetaminophen 1 EACH tablet 1 ea PO Q8H PRN PRN (Reason: Pain) Patient Comments: PAIN latanoprost 0.005 % bottle 1 drp EACHEYE QHS Patient Comments: GLAUCOMA benazepril 10 mg tablet 10 mg PO DAILY Patient Comments: TAKE 1 TABLET BY MOUTH ONCE DAILY duloxetine 30 mg Capsule,Delayed Release(Dr/Ec) 30 mg PO DAILY duloxetine 60 mg Capsule,Delayed Release(Dr/Ec) 60 mg PO QHS Primary Care Provider: Daniella Best Referrals: Daniella Best MD [Primary Care Provider] - Disposition Disposition: Acute Care Hospital [facility]
[2023-05-20] MEDS: Ondansetron 4 MG/2 ML Vial IV (17:14)
[2023-05-20] MEDS: 0.9% Normal Saline 1,000 ML 1000 ML IV (17:14)
[2023-05-20] MEDS: Morphine 4 MG/ML Syringe IV (17:15)
[2023-05-20 17:59] LABS: Absolute Lymphocyte Count 12.33 X10^3/uL (0.83-4.51); Absolute Neutrophil Count 2.9 X10^3/uL (2.0-7.7); Basophil# 0.06 X10^3/uL; Basophil% 0.4 % (0-1); Eosinophil# 0.36 X10^3/uL; Eosinophils% 2.2 % (0-5); Hematocrit 35.8 % (37-47); Hemoglobin 11.6 g/dL (12.0-15.0); Lymphocyte # 12.33 X10^3/ul (0.83-4.51); Lymphocyte % 74.4 % (19-41); Mean Corp Hgb Conc 32.4 g/dL (32-36); Mean Corpuscular Hgb 30.1 pg (27.0-32.0); Mean Platelet Vol. 11.4 fl (6.2-12.0); Monocyte# 0.86 X10^3/uL; Monocyte% 5.2 % (0-10); NRBC Flagged by Analyzer 0 % (0-5); Neutrophil # 2.93 X10^3/uL (2.7-7.7); Neutrophil % 17.6 % (47-70); POSITIVE DIFFERENTIAL YES; POSITIVE MORPHOLOGY YES; Platelet Count 301 K/mm3 (150-450); RBC Distribution Width CV 12.9 % (11.6-14.6); RBC Distribution Width SD 43.9 fl (35.1-43.9); Red Blood Count 3.85 M/mm3 (4.2-5.4); White Blood Count 16.6 K/mm3 (4.4-11.0)
[2023-05-20 18:06] LABS: Differential Indicated SCAN CRITERIA MET
[2023-05-20 18:12] LABS: Lactic Acid 0.7 mmol/L (0.4-1.9)
[2023-05-20 18:19] LABS: ALB/GLOB Ratio 1.1 RATIO (0.9-2.4); AST(SGOT) 22 U/L (15-37); Alanine Aminotransfer ALT/SGPT 26 U/L (13-56); Albumin, Serum 3.3 g/dL (3.2-5.0); Alkaline Phosphatase 77 U/L (45-117); Anion Gap 5 (5-15); BUN 12 mg/dL (7-18); BUN/Creat Ratio 15.7 RATIO (10-20); Calcium,Total 8.3 mg/dL (8.5-10.1); Chloride 101 mmol/L (98-107); Creatinine, Serum 0.76 mg/dL (0.55-1.02); EST Glomerular Filtration Rate 79 mL/min (>60); Est Glom Filt Rate - Afr Amer 96 mL/min (>60); Estimated Creatinine Clearance 40.81 ml/min; Globulin 2.9 g/dL (2.2-4.2); Glucose 95 mg/dL (74-106); Lipase 15 U/L (13-75); Potassium 3.6 mmol/L (3.5-5.1); Protein, Total 6.2 g/dL (6.4-8.2); Sodium Level 136 mmol/L (136-145)
[2023-05-20 18:39] LABS: Bacteria 0 SEEN /hpf (None Seen); Mucous, Urine 0 SEEN /hpf (<or=2+); Red Blood Cells-Urine 0 SEEN /hpf (0-5); Squamous Epithelial Cells - UA 0 SEEN /hpf (5-10); White Blood Cells 0 SEEN /hpf (0-5)
[2023-05-20 18:46] LABS: Color, Urine Yellow (Yellow); Glucose, Dipstick Normal (Normal); Ketone-Dipstick 5 mg/dl (Negative); Leukocyte Esterase-Dipstick Negative /ul (Negative); Nitrite-Dipstick Negative (Negative); Occult Blood-Urine Negative /ul (Negative); Protein-Dipstick Negative (Negative); Urine Bilirubin Dipstick Negative (Negative); Urine Clarity Clear (Clear); Urine Urobilinogen Normal (Normal)
[2023-05-20 19:05] VITALS: BP 136/96; PULSE 76; RESP 16; O2SAT 96
[2023-05-20] MEDS: metroNIDAZOLE 500 MG/100 ML BAG 100 MG IV (19:27)
[2023-05-20] MEDS: HYDROmorphone 1 MG/ML Syringe IV (19:46)
--- NOTE | 2023-05-20 19:55 | HP_ITS ---
Status: ADM AMBER Location: [facility] [id number] HPI - General General Date of Admission: 05/20/23 Date of Service: 05/20/23 Chief Complaint: Abdominal pain HPI Narrative CHRISTINE KUMAR, is a 72 F who presents to the emergency room with chief complaint of abdominal pain. Onset of symptoms began approximately 3 months ago with a significant past medical history of irritable bowel syndrome, fibromyalgia and lower back pain. Patient states that over the last 3 months she has had chronic bloating, anorexia followed by profuse diarrhea and explosive flatus. Today the pain is 8/10 most significantly in the right lower quadrant of the abdomen does not associated with nausea and/or vomiting at this time. CT scan is remarkable for pneumatosis which is commonly seen with ischemic bowel. WBC count is elevated but this seems to be chronic with patient's history of CML. Currently patient complains of lower back pain as well stating that is also 8 out of 10 at this present time. She will be admitted to general medical floor and surgical consult obtained. [facility] Medical History (Updated 05/20/23 @ 19:[address] Sandhya Almaraz, ) Abnormal stress test Ambulates with cane Anxiety Arthritis Back pain Blackout Bladder disease Chronic back pain Depression Difficulty swallowing Fibromyalgia History of IBS History of leukemia History of stress test Hypertension IBS (irritable bowel syndrome) Insomnia Non-smoker Osteoarthritis Severe depression Syncope Uses wheelchair Wears glasses Home Medications atorvastatin 10 mg tablet 10 mg PO QHS CHOLESTEROL 10/26/16 [History Last Taken 08/20/17] estradiol 1 mg tablet 1 mg PO DAILY HORMONE 10/26/16 [History Last Taken 08/20/17] gabapentin 300 mg capsule 900 mg PO QHS NERVE PAIN 10/26/16 [History Last Taken 08/20/17] hydrochlorothiazide 12.5 mg capsule 12.5 mg PO DAILY BLOOD PRESSURE 10/26/16 [History Last Taken 08/21/17] meloxicam 7.5 mg tablet 15 mg PO DAILY PAIN 10/26/16 [History Last Taken 08/21/17] oxybutynin chloride 5 mg tablet 10 mg PO QHS BLADDER 10/26/16 [History Last Taken 08/20/17] hydrocodone 10 mg-acetaminophen 325 mg tablet 1 ea PO Q8H PRN PRN Pain 10/27/16 [History Last Taken 08/21/17] latanoprost 0.005 % eye drops 1 drp EACHEYE QHS GLAUCOMA 08/21/17 [History Last Taken 08/20/17] zolpidem 5 mg tablet 5 mg PO QHS PRN Sleep 02/20/18 [History Last Taken Unknown] benazepril 10 mg tablet 10 mg PO DAILY 06/22/22 [History Last Taken 06/25/22] duloxetine 30 mg capsule,delayed release 30 mg PO DAILY 06/22/22 [History Last Taken Unknown] duloxetine 60 mg capsule,delayed release 60 mg PO QHS 06/22/22 [History Last Taken Unknown] Allergy/AdvReac Type Severity Reaction Status Date / Time adhesive Allergy Rash Verified 05/20/23 14:52 codeine Allergy Hives Verified 05/20/23 14:52 fish oil Allergy Anaphylaxis Verified 05/20/23 14:52 Iodinated Contrast Media Allergy Anaphylaxis Verified 05/20/23 14:52 [Iodinated Contrast Media - IV Dye] Penicillins Allergy Unknown Verified 05/20/23 14:52 Sulfa (Sulfonamide Allergy Hives Verified 05/20/23 14:52 Antibiotics) hydroxychloroquine AdvReac Mild Upset Verified 05/20/23 19:33 Stomach quetiapine [From Seroquel] AdvReac Mild ORBITAL Verified 05/20/23 19:33 PRESSURE azithromycin AdvReac Vomiting Verified 05/20/23 14:52 [From Zithromax Z-Mariusz] trazodone AdvReac SUICIDIAL Verified 05/20/23 14:52 Family History Father Myocardial infarction, Onset Age: 85Mother Heart valve disease Surgical History History of arthroscopy of left knee History of arthroscopy of right knee History of back surgery History of bilateral breast reduction surgery History of cardiac catheterization (~03/19/17) History of ear surgery History of hysterectomy History of lumpectomy of left breast History of repair of right rotator cuff History of total bilateral knee replacement (TKR) Hx of appendectomy Social History Smoking Status: Never smoker alcohol intake: never substance use type: does not use ROS Constitutional Constitutional: Reports anorexia and difficulty sleeping; Denies chills, fatigue or fever(s) Eyes Eyes: Reports none ENT HEENT: Denies abnormal hearing Cardiovascular Cardiovascular: Reports abdominal bloating and abdominal pain Respiratory/Chest Respiratory/Chest: Denies change in mental status or chest congestion Gastrointestinal Gastrointestinal: Reports abdominal pain, anorexia, bloating, change in bowel habits, change in stool character, cramping and diarrhea; Denies coffee ground emesis, constipation, fecal incontinence, hematemesis, hematochezia or nausea Genitourinary Genitourinary: Denies difficulty urinating Musculoskeletal Musculoskeletal: Reports back pain Integumentary Integumentary: Reports none Neurologic Neurologic: Denies abnormal movements or abnormal speech Psychiatric Psychiatric: Reports abnormal sleep pattern and change in appetite Endocrine Endocrinology: Reports fatigue Hematologic/Lymphatic Hematologic/Lymphatic: Denies easy bleeding Vital Signs Vital Signs Vital Signs: 05/20/2314:50 05/20/2319:05 Temperature 97.8 F Temperature Source Temporal Pulse Rate 81 76 Respiratory Rate 16 16 Blood Pressure 131/88 H 136/96 H Blood Pressure Mean 102 109 Pulse Ox 99 96 Oxygen Delivery Method Room Air Room Air Weight Weight: 74.389 kg Body Mass Index (BMI) 29.9 Physical Exam Const oriented x3 General Appearance: cooperative and in distress Positive for moderate Orientation / Consciousness: awake and oriented to person HEENT normocephalic and head/scalp atraumatic Head and Scalp: normal to inspection Face and Sinus: normal facial exam Nose: external nose normal Eyes PERRL General Eye: normal appearance of both eyes Neck no lymphadenopathy Lymph Lymphatic: no lymphedema noted Chest inspection of chest normal Resp normal air movement Cardio regular rate, regular rhythm, S1 normal heart sound and S2 normal heart sound GI Auscultation: normoactive bowel sounds Palpation: tender RLQ external exam normal Back/Spine General Back: tenderness Extremity normal to inspection Skin no rashes or lesions noted Neuro CN's II-XII intact bilaterally Sensorium / Orientation: awake and alert Speech: speech normal Psych Appearance: appropriate Results Lab / Micro Data 05/20/23 17:31 05/20/23 17:31 Labs: Laboratory Results - last 24 hr 05/20/23 17:31: WBC 16.6 H, RBC 3.85 L, Hgb 11.6 L, Hct 35.8 L, MCV 93.0, MCH 30.1, MCHC 32.4, RDW Std Deviation 43.9, RDW Coeff of Marvin 12.9, Plt Count 301, MPV 11.4, Immature Gran % (Auto) 0.200, Neut % (Auto) 17.6 L, Lymph % (Auto) 74.4 H, [place] % (Auto) 5.2, Eos % (Auto) 2.2, Baso % (Auto) 0.4, Absolute Neuts (auto) 2.9, Absolute Lymphs (auto) 12.33 H, Nucleated RBC % 0, Differential Comment , Sodium 136, Potassium 3.6, Chloride 101, Carbon Dioxide 30.0, Anion Gap 5, BUN 12, Creatinine 0.76, Estim Creat Clear Calc 40.81, Est GFR (MDRD) Af Amer 96, Est GFR (MDRD) Non-Af 79, BUN/Creatinine Ratio 15.7, Glucose 95, Lactic Acid 0.7, Calcium 8.3 L, Total Bilirubin 0.40, AST 22, ALT 26, Alkaline Phosphatase 77, Total Protein 6.2 L, Albumin 3.3, Globulin 2.9, Albumin/Globulin Ratio 1.1, Lipase 15 05/20/23 18:25: Urine Color Yellow, Urine Clarity Clear, Urine pH 8.0, Ur Specific [place] 1.010, Urine Protein Negative, Urine Glucose (UA) Normal, Urine Ketones 5 H, Urine Occult Blood Negative, Urine Nitrite Negative, Urine Bilirubin Negative, Urine Urobilinogen Normal, Ur Leukocyte Esterase Negative, Urine RBC 0 SEEN, Urine WBC 0 SEEN, Ur Squamous Epith Cells 0 SEEN, Urine Bacteria 0 SEEN, Urine Mucus 0 SEEN Radiology Impression Abdomen/Pelvis CT 05/20/23 16:37 IMPRESSION: Dependent gas in the ascending colon which may represent gas within stool or perhaps minimal pneumatosis which can be seen in bowel ischemia. There is no wall thickening identified however there is a very trace inflammation in the surrounding mesentery. No fluid collections are identified. There are no other acute abnormalities. Electronically Signed: Oisto Steward MD at 18:20 EDT , ADDENDUM: 05/20/23 4083 IMPRESSION: Dependent gas in the ascending colon which may represent gas within stool or perhaps minimal pneumatosis which can be seen in bowel ischemia. There is no wall thickening identified however there is a very trace inflammation in the surrounding mesentery. No fluid collections are identified. There are no other acute abnormalities. N.B. : The above Results were Read Back by Osito Steward MD to Sandhya Almaraz DO, and understanding confirmed on 05/20/2023 18:26:31 (ET). Electronically Signed: Osito Steward MD at 18:20 EDT , Assessment & Plan Assessment/Plan (1) Abdominal pain: (2) History of leukemia: (3) Hypertension: PLAN: Plan 1 abdominal pain?secondary to pneumatosis/ischemic colitis suspected?admit patient to general medical floor, make patient n.p.o., IV normal saline 125 cc/h, repeat CBC CMP in a.m., consult to Dr. Escobar. We will add Dilaudid 1 mg IV every 3 hours. Significant pain and Zofran as needed for nausea. 2. History of leukemia?patient does not want further treatment for leukemia at this time 3. Hypertension?continue routine home care and medication 4. DVT prophylaxis?low molecular weight heparin Charges/Coding Visit Charges Inpatient E&M: 19537 Init Hosp L2
--- NOTE | 2023-05-20 20:44 | EX.PCM.CON.S ---
Assessment & Plan Assessment/Plan (1) Colitis: PLAN: The patient has a history of CML so her white count is chronically elevated. She has been having months of diarrhea but the pain is getting worse. CT scan reveals inflammation of the mesentery of the right colon. There is also possible pneumatosis. On exam the patient is tender in the right upper quadrant but there is no guarding and her abdomen is soft. She is afebrile with normal vital signs. She is not having any blood in her stool. In the acute phase I would recommend bowel rest with IV hydration and IV antibiotics. Patient may need a colonoscopy in the near future and she may require right hemicolectomy acutely versus electively. I discussed this with her in detail. I also discussed that if she developed any worsening pain, fevers, worsening leukocytosis or signs of acute abdomen she would need to go to surgery emergently. Rafiq Escobar MD Pager: [facility] [address] [place] [address], [address] [place] [address] Office: HPI Consult Data Date of Consult: 05/20/23 HPI Narrative HPI Narrative: CHRISTINE KUMAR, is a 72 F who presents with abdominal pain and diarrhea. Patient reports she has been having diarrhea for 3 months. She says she usually has bloating after any food and then is quickly accompanied by diarrhea. She says her pain got worse over the last 3 days. She denies fevers or chills. The pain is in the right upper quadrant. She has not noted any blood in her stool. [facility] Medical History (Updated 05/20/23 @ 20:[address] Rafiq Escobar MD) Abnormal stress test Ambulates with cane Anxiety Arthritis Back pain Blackout Bladder disease Chronic back pain Depression Difficulty swallowing Fibromyalgia History of IBS History of leukemia History of stress test Hypertension IBS (irritable bowel syndrome) Insomnia Non-smoker Osteoarthritis Severe depression Syncope Uses wheelchair Wears glasses Home Medications atorvastatin 10 mg tablet 10 mg PO QHS CHOLESTEROL 10/26/16 [History Last Taken 08/20/17] estradiol 1 mg tablet 1 mg PO DAILY HORMONE 10/26/16 [History Last Taken 08/20/17] gabapentin 300 mg capsule 900 mg PO QHS NERVE PAIN 10/26/16 [History Last Taken 08/20/17] hydrochlorothiazide 12.5 mg capsule 12.5 mg PO DAILY BLOOD PRESSURE 10/26/16 [History Last Taken 08/21/17] meloxicam 7.5 mg tablet 15 mg PO DAILY PAIN 10/26/16 [History Last Taken 08/21/17] oxybutynin chloride 5 mg tablet 10 mg PO QHS BLADDER 10/26/16 [History Last Taken 08/20/17] hydrocodone 10 mg-acetaminophen 325 mg tablet 1 ea PO Q8H PRN PRN Pain 10/27/16 [History Last Taken 08/21/17] latanoprost 0.005 % eye drops 1 drp EACHEYE QHS GLAUCOMA 08/21/17 [History Last Taken 08/20/17] zolpidem 5 mg tablet 5 mg PO QHS PRN Sleep 02/20/18 [History Last Taken Unknown] benazepril 10 mg tablet 10 mg PO DAILY 06/22/22 [History Last Taken 06/25/22] duloxetine 30 mg capsule,delayed release 30 mg PO DAILY 06/22/22 [History Last Taken Unknown] duloxetine 60 mg capsule,delayed release 60 mg PO QHS 06/22/22 [History Last Taken Unknown] Allergy/AdvReac Type Severity Reaction Status Date / Time adhesive Allergy Rash Verified 05/20/23 14:52 codeine Allergy Hives Verified 05/20/23 14:52 fish oil Allergy Anaphylaxis Verified 05/20/23 14:52 Iodinated Contrast Media Allergy Anaphylaxis Verified 05/20/23 14:52 [Iodinated Contrast Media - IV Dye] Penicillins Allergy Unknown Verified 05/20/23 14:52 Sulfa (Sulfonamide Allergy Hives Verified 05/20/23 14:52 Antibiotics) hydroxychloroquine AdvReac Mild Upset Verified 05/20/23 19:33 Stomach quetiapine [From Seroquel] AdvReac Mild ORBITAL Verified 05/20/23 19:33 PRESSURE azithromycin AdvReac Vomiting Verified 05/20/23 14:52 [From Zithromax Z-Mariusz] trazodone AdvReac SUICIDIAL Verified 05/20/23 14:52 Family History Father Myocardial infarction, Onset Age: 85 Mother Heart valve disease Surgical History History of arthroscopy of left knee History of arthroscopy of right knee History of back surgery History of bilateral breast reduction surgery History of cardiac catheterization (~03/19/17) History of ear surgery History of hysterectomy History of lumpectomy of left breast History of repair of right rotator cuff History of total bilateral knee replacement (TKR) Hx of appendectomy Social History Smoking Status: Never smoker alcohol intake: never substance use type: does not use ROS Constitutional Constitutional: Reports anorexia; Denies chills, fatigue or fever(s) Eyes Eyes: Denies blurry vision ENT HEENT: Denies abnormal hearing Cardiovascular Cardiovascular: Denies chest pain Respiratory/Chest Respiratory/Chest: Denies cough or dyspnea Gastrointestinal Gastrointestinal: Reports abdominal pain, diarrhea and nausea; Denies vomiting Genitourinary Genitourinary: Denies change in urinary stream Musculoskeletal Musculoskeletal: Denies abnormal gait Integumentary Integumentary: Denies jaundice Neurologic Neurologic: Denies dizziness Psychiatric Psychiatric: Denies anxiety Endocrine Endocrinology: Denies flushing Hematologic/Lymphatic Hematologic/Lymphatic: Denies easy bleeding Physical Exam Const alert and oriented x3 HEENT normocephalic Eyes PERRL Lymph Lymphatic: no lymphadenopathy noted Resp normal respiratory effort Cardio Rate: regular rate Rhythm: regular rhythm GI soft to palpation Inspection: Negative for abdominal distention Palpation: tender RUQ Extremity normal to inspection Skin no rashes or lesions noted Lab / Micro Data 05/20/23 17:31 05/20/23 17:31 Labs: Laboratory Results - last 24 hr 05/20/23 17:31: WBC 16.6 H, RBC 3.85 L, Hgb 11.6 L, Hct 35.8 L, MCV 93.0, MCH 30.1, MCHC 32.4, RDW Std Deviation 43.9, RDW Coeff of Marvin 12.9, Plt Count 301, MPV 11.4, Immature Gran % (Auto) 0.200, Neut % (Auto) 17.6 L, Lymph % (Auto) 74.4 H, [place] % (Auto) 5.2, Eos % (Auto) 2.2, Baso % (Auto) 0.4, Absolute Neuts (auto) 2.9, Absolute Lymphs (auto) 12.33 H, Nucleated RBC % 0, Differential Comment , Sodium 136, Potassium 3.6, Chloride 101, Carbon Dioxide 30.0, Anion Gap 5, BUN 12, Creatinine 0.76, Estim Creat Clear Calc 40.81, Est GFR (MDRD) Af Amer 96, Est GFR (MDRD) Non-Af 79, BUN/Creatinine Ratio 15.7, Glucose 95, Lactic Acid 0.7, Calcium 8.3 L, Total Bilirubin 0.40, AST 22, ALT 26, Alkaline Phosphatase 77, Total Protein 6.2 L, Albumin 3.3, Globulin 2.9, Albumin/Globulin Ratio 1.1, Lipase 15 05/20/23 18:25: Urine Color Yellow, Urine Clarity Clear, Urine pH 8.0, Ur Specific [place] 1.010, Urine Protein Negative, Urine Glucose (UA) Normal, Urine Ketones 5 H, Urine Occult Blood Negative, Urine Nitrite Negative, Urine Bilirubin Negative, Urine Urobilinogen Normal, Ur Leukocyte Esterase Negative, Urine RBC 0 SEEN, Urine WBC 0 SEEN, Ur Squamous Epith Cells 0 SEEN, Urine Bacteria 0 SEEN, Urine Mucus 0 SEEN Radiology Impression Abdomen/Pelvis CT 05/20/23 16:37 IMPRESSION: Dependent gas in the ascending colon which may represent gas within stool or perhaps minimal pneumatosis which can be seen in bowel ischemia. There is no wall thickening identified however there is a very trace inflammation in the surrounding mesentery. No fluid collections are identified. There are no other acute abnormalities. Electronically Signed: Osito Steward MD at 18:20 EDT , ADDENDUM: 05/20/23 0401 IMPRESSION: Dependent gas in the ascending colon which may represent gas within stool or perhaps minimal pneumatosis which can be seen in bowel ischemia. There is no wall thickening identified however there is a very trace inflammation in the surrounding mesentery. No fluid collections are identified. There are no other acute abnormalities. N.B. : The above Results were Read Back by Osito Steward MD to Sandhya Almaraz DO, and understanding confirmed on 05/20/2023 18:26:31 (ET). Electronically Signed: Osito Steward MD at 18:20 EDT ,
[2023-05-20 21:03] VITALS: BP 154/66; PULSE 82; RESP 16; TEMP 36.2; O2SAT 98
[2023-05-20 21:21] VITALS: BMI 32.3
[2023-05-20 21:27] VITALS: BP 134/69; PULSE 69; RESP 17; TEMP 36.8; O2SAT 94
[2023-05-20] MEDS: 0.9% Normal Saline 1,000 ML 125 ML IV (23:55)
[2023-05-21 00:09] VITALS: BP 139/80; PULSE 72; RESP 16; TEMP 36.4; O2SAT 96
[2023-05-21] MEDS: HYDROmorphone 1 MG/ML Syringe IV ×3 (00:16→18:18)
[2023-05-21] MEDS: 0.9% Saline Lock 10 ML Syringe IV ×3 (00:16→08:37)
[2023-05-21] MEDS: Ciprofloxacin 400 MG/200 ML BAG 200 MG IV (00:17)
[2023-05-21] MEDS: Ondansetron 4 MG/2 ML Vial IV (00:17)
[2023-05-21] MEDS: Latanoprost 0.005% 1 Bottle 1 DRP EACH EYE ×2 (01:26→21:18)
[2023-05-21 06:00] VITALS: BP 154/64; PULSE 70; RESP 16; TEMP 36.6; O2SAT 96
[2023-05-21 06:15] LABS: Absolute Lymphocyte Count 12.64 X10^3/uL (0.83-4.51); Absolute Neutrophil Count 2.5 X10^3/uL (2.0-7.7); Basophil# 0.06 X10^3/uL; Basophil% 0.4 % (0-1); Differential Indicated SCAN CRITERIA MET; Hematocrit 34.6 % (37-47); Hemoglobin 11.2 g/dL (12.0-15.0); Lymphocyte # 12.64 X10^3/ul (0.83-4.51); Mean Corp Hgb Conc 32.4 g/dL (32-36); Mean Corpuscular Hgb 30.4 pg (27.0-32.0); Mean Platelet Vol. 11.2 fl (6.2-12.0); Monocyte# 1.14 X10^3/uL; Monocyte% 6.8 % (0-10); NRBC Flagged by Analyzer 0 % (0-5); Neutrophil # 2.49 X10^3/uL (2.7-7.7); Neutrophil % 14.6 % (47-70); POSITIVE DIFFERENTIAL YES; POSITIVE MORPHOLOGY YES; Platelet Count 278 K/mm3 (150-450); RBC Distribution Width CV 12.7 % (11.6-14.6); RBC Distribution Width SD 44.1 fl (35.1-43.9); Red Blood Count 3.68 M/mm3 (4.2-5.4); White Blood Count 16.9 K/mm3 (4.4-11.0)
[2023-05-21 06:28] LABS: Differential Comment SCANNED
[2023-05-21 06:29] LABS: Smudge Cells RARE
[2023-05-21 06:48] LABS: ALB/GLOB Ratio 1.2 RATIO (0.9-2.4); AST(SGOT) 22 U/L (15-37); Alanine Aminotransfer ALT/SGPT 27 U/L (13-56); Albumin, Serum 3.2 g/dL (3.2-5.0); Alkaline Phosphatase 68 U/L (45-117); Anion Gap 4 (5-15); BUN 9 mg/dL (7-18); BUN/Creat Ratio 12.5 RATIO (10-20); Calcium,Total 8.4 mg/dL (8.5-10.1); Chloride 104 mmol/L (98-107); Creatinine, Serum 0.72 mg/dL (0.55-1.02); EST Glomerular Filtration Rate 84 mL/min (>60); Est Glom Filt Rate - Afr Amer 102 mL/min (>60); Estimated Creatinine Clearance 38.94 ml/min; Globulin 2.7 g/dL (2.2-4.2); Glucose 90 mg/dL (74-106); Potassium 3.5 mmol/L (3.5-5.1); Protein, Total 5.9 g/dL (6.4-8.2); Sodium Level 137 mmol/L (136-145)
[2023-05-21] MEDS: proCHLORPERazine 10 MG/2 ML Vial IV (06:59)
[2023-05-21 08:21] VITALS: BP 172/67; PULSE 81; RESP 18; TEMP 36.6; O2SAT 97
--- NOTE | 2023-05-21 08:31 | PN.SURG_ITS ---
Subjective Subjective Patient says she is having foul-smelling gas. She denies abdominal pain unless palpated. She denies any nausea or vomiting. Objective Data Objective Data Vital Signs: Vital Signs Temp Pulse Resp BP Pulse Ox O2 Del Method 97.9 F 81 18 172/67 H 97 Room Air 05/21/23 08:21 05/21/23 08:21 05/21/23 08:21 05/21/23 08:21 05/21/23 08:21 05/21/23 08:21 Oxygen Delivery Method Room Air Weight: 170 lb 13.732 oz Body Mass Index (BMI) 32.3 Intake & Output: Intake and Output for Last 24 Hours 05/19/23 05/20/23 05/21/23 23:59 23:59 23:59 Intake Total 1100 / 1100 200 / 200 Balance 1100 / 1100 200 / 200 Lab / Micro Data 05/21/23 05:50 05/21/23 05:50 Labs: Laboratory Results - last 24 hr 05/20/23 17:31: WBC 16.6 H, RBC 3.85 L, Hgb 11.6 L, Hct 35.8 L, MCV 93.0, MCH 30.1, MCHC 32.4, RDW Std Deviation 43.9, RDW Coeff of Marvin 12.9, Plt Count 301, MPV 11.4, Immature Gran % (Auto) 0.200, Neut % (Auto) 17.6 L, Lymph % (Auto) 74.4 H, [place] % (Auto) 5.2, Eos % (Auto) 2.2, Baso % (Auto) 0.4, Absolute Neuts (auto) 2.9, Absolute Lymphs (auto) 12.33 H, Nucleated RBC % 0, Differential Comment , Sodium 136, Potassium 3.6, Chloride 101, Carbon Dioxide 30.0, Anion Gap 5, BUN 12, Creatinine 0.76, Estim Creat Clear Calc 40.81, Est GFR (MDRD) Af Amer 96, Est GFR (MDRD) Non-Af 79, BUN/Creatinine Ratio 15.7, Glucose 95, Lactic Acid 0.7, Calcium 8.3 L, Total Bilirubin 0.40, AST 22, ALT 26, Alkaline Phosphatase 77, Total Protein 6.2 L, Albumin 3.3, Globulin 2.9, Albumin/Globulin Ratio 1.1, Lipase 15 05/20/23 18:25: Urine Color Yellow, Urine Clarity Clear, Urine pH 8.0, Ur Specific [place] 1.010, Urine Protein Negative, Urine Glucose (UA) Normal, Urine Ketones 5 H, Urine Occult Blood Negative, Urine Nitrite Negative, Urine Bilirubin Negative, Urine Urobilinogen Normal, Ur Leukocyte Esterase Negative, Urine RBC 0 SEEN, Urine WBC 0 SEEN, Ur Squamous Epith Cells 0 SEEN, Urine Bacteria 0 SEEN, Urine Mucus 0 SEEN 05/21/23 05:50: WBC 16.9 H, RBC 3.68 L, Hgb 11.2 L, Hct 34.6 L, MCV 94.0, MCH 30 .4, MCHC 32.4, RDW Std Deviation 44.1 H, RDW Coeff of Marvin 12.7, Plt Count 278, MPV 11.2, Immature Gran % (Auto) 0.200, Neut % (Auto) 14.6 L, Lymph % (Auto) 75.0 H, [place] % (Auto) 6.8, Eos % (Auto) 3.0, Baso % (Auto) 0.4, Absolute Neuts (auto) 2.5, Absolute Lymphs (auto) 12.64 H, Nucleated RBC % 0, Differential Comment SCANNED, Smudge Cells RARE, Sodium 137, Potassium 3.5, Chloride 104, Carbon Dioxide 29.0, Anion Gap 4 L, BUN 9, Creatinine 0.72, Estim Creat Clear Calc 38.94, Est GFR (MDRD) Af Amer 102, Est GFR (MDRD) Non-Af 84, BUN/Creatinine Ratio 12.5, Glucose 90, Calcium 8.4 L, Total Bilirubin 0.50, AST 22, ALT 27, Alkaline Phosphatase 68, Total Protein 5.9 L, Albumin 3.2, Globulin 2.7, Albumin/Globulin Ratio 1.2 Radiography Diagnostic Testing: Radiology Impression Abdomen/Pelvis CT 05/20/23 16:37 IMPRESSION: Dependent gas in the ascending colon which may represent gas within stool or perhaps minimal pneumatosis which can be seen in bowel ischemia. There is no wall thickening identified however there is a very trace inflammation in the surrounding mesentery. No fluid collections are identified. There are no other acute abnormalities. Electronically Signed: Osito Steward MD at 18:20 EDT , ADDENDUM: 05/20/23 1833 IMPRESSION: Dependent gas in the ascending colon which may represent gas within stool or perhaps minimal pneumatosis which can be seen in bowel ischemia. There is no wall thickening identified however there is a very trace inflammation in the surrounding mesentery. No fluid collections are identified. There are no other acute abnormalities. N.B. : The above Results were Read Back by Osito Steward MD to Sandhya Almaraz DO, and understanding confirmed on 05/20/2023 18:26:31 (ET). Electronically Signed: Osito Steward MD at 18:20 EDT , Physical Exam Const oriented x3 and no apparent distress Resp normal respiratory effort GI soft to palpation Palpation: tender RLQ Assessment & Plan Assessment/Plan (1) Colitis: PLAN: Patient did have some right lower quadrant pain on palpation. I would continue bowel rest with IV fluids and she may have sips with her medications. Rafiq Escobar MD Pager: [facility] [address] [place] [address], [address] [place] [address] Office:
[2023-05-21] MEDS: Triamterene 37.5MG/Hctz 25MG Capsule 1 CAP PO (08:39)
[2023-05-21] MEDS: Lisinopril 10 MG Tablet PO (08:39)
[2023-05-21] MEDS: 0.9% Normal Saline 1,000 ML 125 ML IV (08:41)
--- NOTE | 2023-05-21 13:20 | CASEMGMT ---
CHANO BINGHAM Assessment: Face to Face with pt for initial transition planning/care coordination assessment. CHANO BINGHAM introduced self and role at [facility], pt voices understanding and consents to assessment. Pt is A/O x4 and answers all questions appropriately at this time. Pt sitting up in bed with sunglasses on in no distress. Care providers, pharmacy, and demographics verified/updated. Admitting Dx: abd pain PCP:Nasir Specialists:kailee Garcia Preferred Pharmacy: [facility] Insurance: [facility], [employer] Prescription Benefit: yes LNOK: Haider [place], ; Carla Escamilla, dtr Living Arrangements: Pt lives with in a single story home with 2 steps to enter. Pt reports she is I in ADL's and denies concerns at home. Transportation: Pt or son transport pt to medical appts. DME/HHC/SNF: Pt has a cane, walker and w/c that she does not use. Pt denies hx of HHC or SNF stays. Pt states no concerns with going home at time of dc. Pt states no further concerns/needs. CM to follow. Advised pt to ask CM if any further question/concerns/needs arise, voices understanding. Pt Goal: Home Plan: Home
[2023-05-21] MEDS: DULoxetine Hcl 60 MG Capsule PO (14:49)
[2023-05-21] MEDS: hydrOXYzine PAM 25 MG Capsule PO (14:50)
[2023-05-21 14:57] VITALS: BP 147/78; PULSE 80; RESP 18; TEMP 36.6; O2SAT 100
--- NOTE | 2023-05-21 15:58 | PN.HOSP_ITS ---
Reason for Visit Reason for Visit: Diagnoses Essential (primary) hypertension (05/20/23) Noninfective gastroenteritis and colitis, unspecified (05/20/23) Unspecified abdominal pain (05/20/23) Personal history of leukemia (05/20/23) Subjective Subjective Patient was seen and examined today, she was admitted yesterday for right sided abdominal pain, she was seen by general surgery who did not feel that she had a surgical abdomen. Patient is being treated conservatively with IV fluids and clear liquid diet. Patient denies any fever or chills. Objective Data Objective Data Vital Signs: Vital Signs Temp Pulse Resp BP Pulse Ox O2 Del Method 98 F 80 18 147/78 H 100 Room Air 05/21/23 14:57 05/21/23 14:57 05/21/23 14:57 05/21/23 14:57 05/21/23 14:57 05/21/23 14:57 Oxygen Delivery Method Room Air Weight: 77.5 kg Body Mass Index (BMI) 32.3 Intake & Output: Intake and Output for Last 24 Hours 05/19/23 05/20/23 05/21/23 23:59 23:59 23:59 Intake Total 1100 / 1100 1300 / 1300 Balance 1100 / 1100 1300 / 1300 Lab / Micro Data 05/21/23 05:50 05/21/23 05:50 Labs: Laboratory Results - last 24 hr 05/20/23 17:31: WBC 16.6 H, RBC 3.85 L, Hgb 11.6 L, Hct 35.8 L, MCV 93.0, MCH 30 .1, MCHC 32.4, RDW Std Deviation 43.9, RDW Coeff of [place] 12.9, Plt Count 301, MPV 11.4, Immature Gran % (Auto) 0.200, Neut % (Auto) 17.6 L, Lymph % (Auto) 74.4 H, [place] % (Auto) 5.2, Eos % (Auto) 2.2, Baso % (Auto) 0.4, Absolute Neuts (auto) 2.9, Absolute Lymphs (auto) 12.33 H, Nucleated RBC % 0, Differential Comment , Sodium 136, Potassium 3.6, Chloride 101, Carbon Dioxide 30.0, Anion Gap 5, BUN 12, Creatinine 0.76, Estim Creat Clear Calc 40.81, Est GFR (MDRD) Af Amer 96, Est GFR (MDRD) Non-Af 79, BUN/Creatinine Ratio 15.7, Glucose 95, Lactic Acid 0.7, Calcium 8.3 L, Total Bilirubin 0.40, AST 22, ALT 26, Alkaline Phosphatase 77, Total Protein 6.2 L, Albumin 3.3, Globulin 2.9, Albumin/Globulin Ratio 1.1, Lipase 15 05/20/23 18:25: Urine Color Yellow, Urine Clarity Clear, Urine pH 8.0, Ur Specific [place] 1.010, Urine Protein Negative, Urine Glucose (UA) Normal, Urine Ketones 5 H, Urine Occult Blood Negative, Urine Nitrite Negative, Urine Bilirubin Negative, Urine Urobilinogen Normal, Ur Leukocyte Esterase Negative, Urine RBC 0 SEEN, Urine WBC 0 SEEN, Ur Squamous Epith Cells 0 SEEN, Urine Bacteria 0 SEEN, Urine Mucus 0 SEEN 05/21/23 05:50: WBC 16.9 H, RBC 3.68 L, Hgb 11.2 L, Hct 34.6 L, MCV 94.0, MCH 30.4, MCHC 32.4, RDW Std Deviation 44.1 H, RDW Coeff of [place] 12.7, Plt Count 278, MPV 11.2, Immature Gran % (Auto) 0.200, Neut % (Auto) 14.6 L, Lymph % (Auto) 75.0 H, [place] % (Auto) 6.8, Eos % (Auto) 3.0, Baso % (Auto) 0.4, Absolute Neuts (auto) 2.5, Absolute Lymphs (auto) 12.64 H, Nucleated RBC % 0, Differential Com ment SCANNED, Smudge Cells RARE, Sodium 137, Potassium 3.5, Chloride 104, Carbon Dioxide 29.0, Anion Gap 4 L, BUN 9, Creatinine 0.72, Estim Creat Clear Calc 38.94, Est GFR (MDRD) Af Amer 102, Est GFR (MDRD) Non-Af 84, BUN/Creatinine Ratio 12.5, Glucose 90, Calcium 8.4 L, Total Bilirubin 0.50, AST 22, ALT 27, Alkaline Phosphatase 68, Total Protein 5.9 L, Albumin 3.2, Globulin 2.7, Albumin/Globulin Ratio 1.2 Radiography Diagnostic Testing: Radiology Impression Abdomen/Pelvis CT 05/20/23 16:37 IMPRESSION: Dependent gas in the ascending colon which may represent gas within stool or perhaps minimal pneumatosis which can be seen in bowel ischemia. There is no wall thickening identified however there is a very trace inflammation in the surrounding mesentery. No fluid collections are identified. There are no other acute abnormalities. Electronically Signed: Osito Steward MD at 18:20 EDT , ADDENDUM: 05/20/23 1833 IMPRESSION: Dependent gas in the ascending colon which may represent gas within stool or perhaps minimal pneumatosis which can be seen in bowel ischemia. There is no wall thickening identified however there is a very trace inflammation in the surrounding mesentery. No fluid collections are identified. There are no other acute abnormalities. N.B. : The above Results were Read Back by Osito Steward MD to Sandhya Almaraz DO, and understanding confirmed on 05/20/2023 18:26:31 (ET). Electronically Signed: Osito Steward MD at 18:20 EDT , Physical Exam Const alert, oriented x3, no apparent distress, average body habitus and healthy appearing General Appearance: cooperative, well kempt and well developed Orientation / Consciousness: awake, oriented to person, oriented to place and oriented to time HEENT normocephalic, head/scalp atraumatic and moist oral mucous membranes Eyes PERRL, EOMs intact bilaterally and conjunctivae normal Neck supple, no JVD, thyroid normal and no carotid bruits General: trachea midline Resp normal respiratory effort, no retractions, no use of accessory muscles and clear to auscultation bilaterally Auscultation: Negative for rales, rhonchi or wheezes Cardio regular rate, regular rhythm, S1 normal heart sound, S2 normal heart sound, no murmurs, no rub and no gallops GI soft to palpation GI Narrative: Patient has mild right-sided abdominal tenderness to palpation, no rebound abdominal tenderness was noted Extremity no clubbing, cyanosis or edema Skin no rashes or lesions noted General Skin Exam: no breakdown Neuro oriented x3, CN's II-XII intact bilaterally, no focal motor deficits and no sensory deficits noted Sensorium / Orientation: awake and alert Speech: speech normal Psych affect normal Assessment & Plan Assessment/Plan (1) Colitis: PLAN: Plan 1. Acute colitis-type unknown at this time, patient will remain on IV fluids and a clear liquid diet for now, she is not receiving any IV antibiotics. General surgery is following her. #2 essential hypertension-patient will remain on her present medication #3 chronic depression-patient will remain on Cymbalta #4 chronic lymphocytic leukemia-complicates care, medical course, recovery, and prognosis #5 irritable bowel syndrome-complicates care, medical course, recovery, and prognosis Total clinical time spent by myself addressing the patient's medical issues, reviewing all of her data, and collaborating with patient's care team: 35 minutes Charges/Coding Visit Charges Inpatient E&M: 34998 Subs Hosp L2
[2023-05-21] MEDS: Atorvastatin Calcium 10 MG Tablet PO (21:18)
[2023-05-21] MEDS: Gabapentin 300 MG Capsule 900 MG PO (21:18)
[2023-05-21] MEDS: Zolpidem Tartrate 5 MG Tablet 10 MG PO (21:18)
[2023-05-21] MEDS: 0.9% Normal Saline 1,000 ML 40 ML IV (21:18)
[2023-05-21] MEDS: DULoxetine Hcl 30 MG Capsule PO (21:18)
[2023-05-21] MEDS: Oxybutynin 5 MG Tablet 10 MG PO (21:25)
[2023-05-21 21:38] VITALS: BP 152/73; PULSE 86; RESP 16; TEMP 36.6; O2SAT 96
[2023-05-21] MEDS: Doxepin Hcl 25 MG Capsule PO (22:00)
[2023-05-22 06:36] VITALS: BP 146/67; PULSE 84; RESP 16; TEMP 36.6; O2SAT 96
--- NOTE | 2023-05-22 06:52 | PCM.PN.SRG ---
Subjective Subjective Patient is not having any abdominal pain. She reports she had 2 bowel movements overnight which were nonbloody and she is not having any nausea or vomiting. Objective Data Objective Data Vital Signs: Vital Signs Temp Pulse Resp BP Pulse Ox O2 Del Method 97.9 F 84 16 146/67 H 96 Room Air 05/22/23 06:36 05/22/23 06:36 05/22/23 06:36 05/22/23 06:36 05/22/23 06:36 05/22/23 06:36 Oxygen Delivery Method Room Air Weight: 170 lb 13.732 oz Body Mass Index (BMI) 32.3 Intake & Output: Intake and Output for Last 24 Hours 05/20/23 05/21/23 05/22/23 23:59 23:59 23:59 Intake Total 1100 / 1100 2471.58 / 2471.58 Balance 1100 / 1100 2471.58 / 2471.58 Lab / Micro Data 05/21/23 05:50 05/21/23 05:50 Physical Exam Const oriented x3 and no apparent distress Resp normal respiratory effort GI normal to inspection, nondistended, normoactive bowel sounds Assessment & Plan Assessment/Plan (1) Colitis: PLAN: Patient is not having any abdominal pain today. She tolerated clear liquids yesterday. She is had bowel movements and they are nonbloody. I will advance her to regular diet. If she tolerates that she can be discharged home. She will follow-up with me and I will plan for colonoscopy as an outpatient. Rafiq Escobar MD Pager: [facility] [address] [place] [address], [address] [place] [address] Office:
[2023-05-22 07:03] VITALS: O2SAT 94
[2023-05-22 07:53] VITALS: BP 148/71; PULSE 71; RESP 16; TEMP 36.5; O2SAT 97
[2023-05-22] MEDS: Lisinopril 10 MG Tablet PO (09:23)
[2023-05-22] MEDS: DULoxetine Hcl 60 MG Capsule PO (09:27)
[2023-05-22] MEDS: HYDROcodone Bitartrate/Apap 5/325 Tablet PO (10:22)
--- NOTE | 2023-05-22 11:17 | PCM.DC ---
Discharge Instructions Diet Discharge Diet: No restrictions Activity Discharge Activity: Return to Normal Activity Weight Bearing Status: Full weight bearing Follow Up Care Test Results: Test results from this visit will be discussed in further detail at your follow-up appointment, if applicable. Discharge Plan Admission Admit Date/Time: 05/20/23 20:15 Primary Reason for Your Visit: colitis Attending Provider: William Pan Primary Care Provider: Daniella Best Consulting Providers: Rafiq Escobar; Ponce Arrington Discharge Orders/Prescriptions Prescriptions: Continued zolpidem 5 mg tablet 10 mg PO QHS PRN (Reason: Sleep) atorvastatin 10 MG tablet 10 mg PO QHS Patient Comments: CHOLESTEROL meloxicam 7.5 MG tablet 15 mg PO DAILY Patient Comments: PAIN estradiol 1 MG tablet 1 mg PO DAILY Patient Comments: HORMONE gabapentin 300 MG capsule 900 mg PO QHS Patient Comments: NERVE PAIN oxybutynin chloride 5 MG tablet 10 mg PO QHS Patient Comments: BLADDER hydrocodone-acetaminophen 1 EACH tablet 1 ea PO Q6H PRN (Reason: Pain) Patient Comments: PAIN latanoprost 0.005 % bottle 1 drp EACHEYE QHS Patient Comments: GLAUCOMA benazepril 10 mg tablet 10 mg PO DAILY Patient Comments: TAKE 1 TABLET BY MOUTH ONCE DAILY duloxetine 30 mg Capsule,Delayed Release(Dr/Ec) 30 mg PO DAILY duloxetine 60 mg Capsule,Delayed Release(Dr/Ec) 60 mg PO QHS doxepin 10 mg capsule 25 mg PO QHS hydroxyzine pamoate 25 mg capsule 25 mg PO BID PRN Patient Comments: Take 1 capsule by mouth twice daily as needed. lorazepam 0.5 mg tablet Hold Instructions: MD Ordered Patient Comments: Take 1-2 tablets by mouth twice daily as needed (anxiety with flying; panic attacks) for up to 30 days. Do not take with [place] triamterene-hydrochlorothiazid 37.5-25 mg tablet 1 tab PO DAILY Discontinued hydrochlorothiazide 12.5 MG capsule 12.5 mg PO DAILY Hold Instructions: MD Ordered Patient Comments: BLOOD PRESSURE Referrals / Follow Up: Rafiq Escobar MD [Med Staff - Active Staff] - In 1 Week (Call the office to schedule an appointment) Daniella Best MD [Primary Care Provider] - Disposition Disposition (needs filled in before D/C Order can be placed): Home, Self Care
--- NOTE | 2023-05-22 11:24 | DS.PCM_ITS ---
Providers Date of Admission: 05/20/23 Date of Discharge: 05/22/23 Primary Care Physician: Dr. Daniella Best MD Consultations 05/20/23 22:41 Consult: General Surgery Routine Consulting Provider: Rafiq Escobar Reason for Consult: Abdominal pain EMERGENT Consult: Yes Notified: Yes Date Notified: 05/20/23 Time Notified: 20:17 Method of Notification: ED Physician Initiated Reason For Visit: ABDOMINAL PAIN Diagnosis Discharge Diagnosis (1) Colitis: Status: Acute Code(s): K52.9 - Noninfective gastroenteritis and colitis, unspecified Plan 1. Acute colitis-type unknown at this time, patient will remain on IV fluids and a clear liquid diet for now, she is not receiving any IV antibiotics. General surgery is following her. #2 essential hypertension-patient will remain on her present medication #3 chronic depression-patient will remain on Cymbalta #4 chronic lymphocytic leukemia-complicates care, medical course, recovery, and prognosis #5 irritable bowel syndrome-complicates care, medical course, recovery, and prognosis Total clinical time spent by myself addressing the patient's medical issues, reviewing all of her data, and collaborating with patient's care team: 35 minutes Medications at Discharge Home Medications atorvastatin 10 mg tablet 10 mg PO QHS CHOLESTEROL 10/26/16 estradiol 1 mg tablet 1 mg PO DAILY HORMONE 10/26/16 gabapentin 300 mg capsule 900 mg PO QHS NERVE PAIN 10/26/16 meloxicam 7.5 mg tablet 15 mg PO DAILY PAIN 10/26/16 oxybutynin chloride 5 mg tablet 10 mg PO QHS BLADDER 10/26/16 hydrocodone 10 mg-acetaminophen 325 mg tablet 1 ea PO Q6H PRN Pain 10/27/16 latanoprost 0.005 % eye drops 1 drp EACHEYE QHS GLAUCOMA 08/21/17 zolpidem 5 mg tablet 10 mg PO QHS PRN Sleep 02/20/18 benazepril 10 mg tablet 10 mg PO DAILY see 06/22/22 duloxetine 30 mg capsule,delayed release 30 mg PO DAILY depression 06/22/22 duloxetine 60 mg capsule,delayed release 60 mg PO QHS depression 06/22/22 doxepin 10 mg capsule 25 mg PO QHS bladder 05/20/23 hydroxyzine pamoate 25 mg capsule 25 mg PO BID PRN anxiety 05/20/23 lorazepam 0.5 mg tablet mg anxiety 05/20/23 triamterene 37.5 mg-hydrochlorothiazide 25 mg tablet 1 tab PO DAILY bp 05/20/23 Hospital Course Operations None Procedures None Summary of Care Provided Minutes Spent on Discharge: 31 Hospital Course: 72-year-old white female was seen in the emergency room at [facility] with complaints of abdominal pain over the right mid and lower abdomen along with gas and bloating. Patient had been having chronic diarrhea for the last 3 months also. Work-up in the emergency room included a CBC which revealed elevated white blood cell count-patient however had a history of CLL, CT scan of the abdomen and pelvis was obtained which showed dependent gas descending colon, no wall thickening was identified but there was a very trace inflammation in the surrounding mesentery. Patient was given IV antibiotics in the emergency room and admitted to [place] [address], she was seen in consultation by general surgery, general surgery recommended conservative care with a clear liquid diet and IV fluids, antibiotics were not continued however. Patient's symptoms improved. On 05/22/2023, patient was seen and examined: On examination she appeared in good health and spirits, she does not appear to be in any distress. Vital signs as documented. Skin warm and dry and without overt rashes. Neck without JVD, thyroid appears normal, trachea is midline, neck is supple. Lungs clear, normal air movement was noted. Heart exam notable for regular rhythm, normal sounds and absence of murmurs, rubs or gallops. Abdomen unremarkable and without evidence of organomegaly, masses, or abdominal aortic enlargement, bowel sounds are present in all 4 quadrants, no abdominal tenderness was noted. Extremities nonedematous, no cyanosis was noted, no clubbing was noted. Neuro: Cranial nerves II through XII are grossly intact, no focal motor deficits were noted, sensation to light touch and pinprick is intact, motor exam 5/5 throughout. Psych: Patient is alert and oriented x3, she does not appear anxious or depressed, she does not appear agitated. Patient was felt to be stable for discharge home on 05/22/2023, she was to f ollow-up with general surgery regarding further work-up for possible colitis. Weight / BMI Weight Weight: 77.5 kg Body Mass Index (BMI) 32.3 ABG / Lab / Microbiology Data 05/21/23 05:50 05/21/23 05:50 D/C Instructions Discharge Diet: No restrictions Weight Bearing Status: Full weight bearing Meaningful Use Info Meaningful Use Diagnoses (Choose all that apply): None applicable Discharge Plan Admission Admit Date/Time: 05/20/23 20:15 Primary Reason for Your Visit: colitis Attending Provider: William Pan Primary Care Provider: Daniella Best Consulting Providers: Rafiq Escobar; Ponce Arrington Discharge Orders/Prescriptions Prescriptions: Continued zolpidem 5 mg tablet 10 mg PO QHS PRN (Reason: Sleep) atorvastatin 10 MG tablet 10 mg PO QHS Patient Comments: CHOLESTEROL meloxicam 7.5 MG tablet 15 mg PO DAILY Patient Comments: PAIN estradiol 1 MG tablet 1 mg PO DAILY Patient Comments: HORMONE gabapentin 300 MG capsule 900 mg PO QHS Patient Comments: NERVE PAIN oxybutynin chloride 5 MG tablet 10 mg PO QHS Patient Comments: BLADDER hydrocodone-acetaminophen 1 EACH tablet 1 ea PO Q6H PRN (Reason: Pain) Patient Comments: PAIN latanoprost 0.005 % bottle 1 drp EACHEYE QHS Patient Comments: GLAUCOMA benazepril 10 mg tablet 10 mg PO DAILY Patient Comments: TAKE 1 TABLET BY MOUTH ONCE DAILY duloxetine 30 mg Capsule,Delayed Release(Dr/Ec) 30 mg PO DAILY duloxetine 60 mg Capsule,Delayed Release(Dr/Ec) 60 mg PO QHS doxepin 10 mg capsule 25 mg PO QHS hydroxyzine pamoate 25 mg capsule 25 mg PO BID PRN Patient Comments: Take 1 capsule by mouth twice daily as needed. lorazepam 0.5 mg tablet Hold Instructions: MD Ordered Patient Comments: Take 1-2 tablets by mouth twice daily as needed (anxiety with flying; panic attacks) for up to 30 days. Do not take with [place] triamterene-hydrochlorothiazid 37.5-25 mg tablet 1 tab PO DAILY Discontinued hydrochlorothiazide 12.5 MG capsule 12.5 mg PO DAILY Hold Instructions: MD Ordered Patient Comments: BLOOD PRESSURE Referrals / Follow Up: Rafiq Escobar MD [Med Staff - Active Staff] - In 1 Week (Call the office to schedule an appointment) Daniella Best MD [Primary Care Provider] - Disposition Disposition (needs filled in before D/C Order can be placed): Home, Self Care Charges/Coding Visit Charges Inpatient E&M: 10182 Disch Hosp >30min
--- NOTE | 2023-05-22 11:40 | PHA.DC.MR.R ---
[facility] has performed discharge medication reconciliation for this patient. The patient's discharge medication list was reviewed for discrepancies and discrepancies were resolved. Medications at Discharge Home Medications atorvastatin 10 mg tablet 10 mg PO QHS CHOLESTEROL 10/26/16 estradiol 1 mg tablet 1 mg PO DAILY HORMONE 10/26/16 gabapentin 300 mg capsule 900 mg PO QHS NERVE PAIN 10/26/16 meloxicam 7.5 mg tablet 15 mg PO DAILY PAIN 10/26/16 oxybutynin chloride 5 mg tablet 10 mg PO QHS BLADDER 10/26/16 hydrocodone 10 mg-acetaminophen 325 mg tablet 1 ea PO Q6H PRN Pain 10/27/16 latanoprost 0.005 % eye drops 1 drp EACHEYE QHS GLAUCOMA 08/21/17 zolpidem 5 mg tablet 10 mg PO QHS PRN Sleep 02/20/18 benazepril 10 mg tablet 10 mg PO DAILY see md 06/22/22 duloxetine 30 mg capsule,delayed release 30 mg PO DAILY depression 06/22/22 duloxetine 60 mg capsule,delayed release 60 mg PO QHS depression 06/22/22 doxepin 10 mg capsule 25 mg PO QHS bladder 05/20/23 hydroxyzine pamoate 25 mg capsule 25 mg PO BID PRN anxiety 05/20/23 lorazepam 0.5 mg tablet mg anxiety 05/20/23 triamterene 37.5 mg-hydrochlorothiazide 25 mg tablet 1 tab PO DAILY bp 05/20/23
[2023-05-22] MEDS: Triamterene 37.5MG/Hctz 25MG Capsule 1 CAP PO (11:57)
--- NOTE | 2023-05-22 12:30 | CASEMGMT ---
RN CM: This RN CM met with pt face to face at bedside. Pt denies any discharge needs at this time and plans to return home. Adrián Moore RN CM
[2023-05-22 13:53] VITALS: BP 131/72; PULSE 88; RESP 16; TEMP 36.6; O2SAT 96
== END 2023-05-22 14:06 | disposition home or self-care (01) | DRG 392 ==
LOC: ED 19:35 → MS3 20:20
PROVIDERS: Admitting Provider Family Medicine; Emergency Provider Emergency Medicine; PCP Internal Medicine; Referring Provider Family Medicine; Visit Provider Internal Medicine
DX: K52.9 Noninfective gastroenteritis and colitis, unspecified (principal); F32.A Depression, unspecified; I10 Essential (primary) hypertension; M79.7 Fibromyalgia; Z79.899 Other long term (current) drug therapy; Z85.6 Personal history of leukemia
CPT/HCPCS: 36415; 74176; 80053; 81001; 83605; 83690; 85025; 99284; J7030; A4216; J0744; J2405

== ENCOUNTER 2023-06-14 06:55 | Day surgery (SDC) | payer MEDICARE, OTHER, SELFPAY ==
[2023-06-14] VITALS (7 sets, daily range): BP systolic 88–151; BP diastolic 41–70; PULSE 57–68; RESP 14–16; TEMP 36.3–36.7; O2SAT 94–99; BMI 30.8
--- NOTE | 2023-06-14 | COLBX_PTH ---
PATIENT: CHRISTINE KUMAR LOC: EN U#:[id number] AGE/SX: 73/F ROOM: RE06/14/[address]: Dr. Rafiq Escobar MD : [id number] BED: DIS: 06/14/2023 SPEC #: [id number] RECD: 06/14/23 12:52 STATUS: ONESIMO REJohana #: [id number] KAISER: 06/14/23 00:[address]: Rafiq Escobar DEPT: SURGICAL PATHOLOGY RECD BY: Colt Rivera ENTERED: 06/14/23 12:53 SP TYPE: COLON BX OTHR DR: Dr. Daniella Best MD Tissues: A - Cecum, NOS B - COLON BIOPSY Procedures: Surgery Specimen Level IV HEADER OPERATION: Colonoscopy, biopsy PRE-OP DIAGNOSIS: Colitis TISSUE SUBMITTED: A - Cecum biopsy, B - Random colon biopsy MICROSCOPIC DIAGNOSIS A. Cecum, biopsy: Fragments of colonic mucosa with ulceration, acute and chronic inflammation, and granulation tissue reaction. See Comment. B. Colon, random biopsy: Focal acute colitis. See comment. MARY GRACE:kary 06/17/2023 COMMENT A. Cryptitis, crypt abscesses or granulomas are not seen. No evidence of dysplasia. B. Focal cryptitis is noted. Crypt abscesses, granular distortion or granulomas are not seen. Correlation with clinical, endoscopic findings and appropriate follow up are necessary. MICROSCOPIC DESCRIPTION Slides are reviewed. GROSS DESCRIPTION A - Received in fixative is one container labeled with the patient's name and designated cecum biopsy. The specimen consists of multiple irregular fragments of light vo soft tissue that in aggregate measure 0.8 x 0.3 x 0.1 cm. The specimen is totally submitted in one cassette. B - Received in fixative is one container labeled with the patient's name and designated random colon biopsy. The specimen consists of multiple irregular fragments of light vo soft tissue that in aggregate measure 2.0 x 0.5 x 0.1 cm. The specimen is totally submitted in one cassette. / MARY GRACE:kary 06/14/2023 TC:3 CPT: 71726 x2
--- NOTE | 2023-06-14 07:42 | PCM.HP.BLA ---
History and Physical Date of Admission: 06/14/23 Intake Vital Signs 05/21/2314:07 Height 5 ft 1 in Intake Visit Reasons: ABDOMINAL PAIN 05/22 Chief Complaint: abd pain Allergies adhesive Allergy (Verified 05/30/23 09:35) Rashcodeine Allergy (Verified 05/30/23 09:35) Hivesfish oil Allergy (Verified 05/30/23 09:35) AnaphylaxisIodinated Contrast Media [Iodinated Contrast Media - IV Dye] Allergy (Verified 05/30/23 09:35) AnaphylaxisPenicillins Allergy (Verified 05/30/23 09:35) UnknownSulfa (Sulfonamide Antibiotics) Allergy (Verified 05/30/23 09:35) Hiveshydroxychloroquine Adverse Reaction (Mild, Verified 05/30/23 09:35) Upset Stomachquetiapine [From Seroquel] Adverse Reaction (Mild, Verified 05/30/23 09:35) ORBITAL PRESSUREazithromycin [From Zithromax Z-Mariusz] Adverse Reaction (Verified 05/30/23 09:35) Vomitingtrazodone Adverse Reaction (Verified 05/30/23 09:35) SUICIDIAL Medications atorvastatin 10 mg tablet 10 mg PO QHS CHOLESTEROL 10/26/16 [History Confirmed 05/30/23] estradiol 1 mg tablet 1 mg PO DAILY HORMONE 10/26/16 [History Confirmed 05/30/23] gabapentin 300 mg capsule 900 mg PO QHS NERVE PAIN 10/26/16 [History Confirmed 05/30/23] meloxicam 7.5 mg tablet 15 mg PO DAILY PAIN 10/26/16 [History Confirmed 05/30/23] oxybutynin chloride 5 mg tablet 10 mg PO QHS BLADDER 10/26/16 [History Confirmed 05/30/23] hydrocodone 10 mg-acetaminophen 325 mg tablet 1 ea PO Q6H PRN Pain 10/27/16 [History Confirmed 05/30/23] latanoprost 0.005 % eye drops 1 drp EACHEYE QHS GLAUCOMA 08/21/17 [History Confirmed 05/30/23] zolpidem 5 mg tablet 10 mg PO QHS PRN Sleep 02/20/18 [History Confirmed 05/30/23] benazepril 10 mg tablet 10 mg PO DAILY see 06/22/22 [History Confirmed 05/30/23] duloxetine 30 mg capsule,delayed release 30 mg PO DAILY depression 06/22/22 [History Confirmed 05/30/23] duloxetine 60 mg capsule,delayed release 60 mg PO QHS depression 06/22/22 [History Confirmed 05/30/23] doxepin 10 mg capsule 25 mg PO QHS bladder 05/20/23 [History Confirmed 05/30/23] hydroxyzine pamoate 25 mg capsule 25 mg PO BID PRN anxiety 05/20/23 [History Confirmed 05/30/23] lorazepam 0.5 mg tablet mg anxiety 05/20/23 [History Confirmed 05/30/23] triamterene 37.5 mg-hydrochlorothiazide 25 mg tablet 1 tab PO DAILY bp 05/20/23 [History Confirmed 05/30/23] Subjective Details: Patient reports that she is doing better than when she was in the hospital but she still does bloat up occasionally and she is still having foul-smelling gas. She is not having any pain. She denies any blood in her stool. Objective Details: Abdomen is soft and nontender Coding Level of Care Code Off vis,est,level 3 Diagnoses Colitis K52.9 [facility] Medical History (Updated 05/30/23 @ 00:01 by Vani Wiley) Abdominal pain Abnormal stress test Ambulates with cane Anxiety Arthritis Back pain Blackout Bladder disease Chronic back pain Colitis Depression Diarrhea Difficulty swallowing Fibromyalgia History of IBS History of leukemia History of stress test Hypertension IBS (irritable bowel syndrome) Insomnia Non-smoker Osteoarthritis Severe depression Syncope Uses wheelchair Wears glasses Surgical History History of arthroscopy of left knee History of arthroscopy of right knee History of back surgery History of bilateral breast reduction surgery History of cardiac catheterization (~03/19/17) History of ear surgery History of hysterectomy History of lumpectomy of left breast History of repair of right rotator cuff History of total bilateral knee replacement (TKR) Hx of appendectomy Family History Father Myocardial infarction, Onset Age: 85Mother Heart valve disease Social History Smoking Status: Never smoker alcohol intake: never substance use type: does not use Assessment and Plan (No Qualifiers) Assessment and Plan (1) Colitis: Status: Inactive Plan: Patient has a history of colitis and foul-smelling gas. The colitis was on the right side and there was possible pneumatosis. Patient seems to be doing better currently. I will plan for colonoscopy and biopsies of the right colon. I explained endoscopy in detail to the patient. I explained the risks including but not limited to stroke or heart attack with anesthesia, perforation of the GI tract, bleeding, infection. I explained that any of these could necessitate further emergency surgery. The patient understands and all questions were answered sufficiently. The patient wishes to proceed with procedure. Rafiq Escobar MD Pager: [facility] [address] [place] [address], [address] [place] [address] Office: I have examined the patient and the H&P has been reviewed. There are no clinical changes since date of exam.
[2023-06-14] MEDS: Lactated Ringers 1,000 ML 15 ML IV (07:54)
--- NOTE | 2023-06-14 08:25 | OP.CCLET_ITS ---
06/14/2023 Daniella Best [address] [place] [address] Re : Colonoscopy procedure for Khushbu Geronimo Dear Dr. Best This procedure was performed on Wednesday, June 14, 2023. My impressions and recommendations are as follows: Impressions : - The entire examined colon is normal on direct and retroflexion views. - Localized mild inflammation was found at the appendiceal orifice. Biopsied. - Biopsies were taken with a cold forceps from the entire colon for evaluation of microscopic colitis. Recommendations : - Discharge patient to home. - Resume previous diet. - Continue present medications. - Await pathology results. - Repeat colonoscopy in 5 years for surveillance based on pathology results. My findings are described in the full procedure note, which is enclosed. If I can be of further assistance, please feel free to contact me at Doctor phone number(s): , Work: . Sincerely, Rafiq Escobar MD 06/14/2023 8:25:01 AM This report has been signed electronically.
--- NOTE | 2023-06-14 08:25 | OP.COLON_ITS ---
Patient Name: Khushbu Geronimo Procedure Date: 06/14/2023 7:47 AM Date of : 1950 Age: 73 Procedure: Colonoscopy Indications: Follow-up of colitis, Chronic diarrhea Providers: Rafiq Escobar MD Referring MD: Daniella Best Medicines: Monitored Anesthesia Care Patient Profile: This is a 73 year old female. Refer to note in patient chart for documentation of history and physical. Last Colonoscopy: several years ago. Complications: No immediate complications. Estimated blood loss: Minimal. Procedure: Pre-Anesthesia Assessment: - Prior to the procedure, a History and Physical was performed, and patient medications and allergies were reviewed. The patient's tolerance of previous anesthesia was also reviewed. The risks and benefits of the procedure and the sedation options and risks were discussed with the patient. All questions were answered, and informed consent was obtained. Prior Anticoagulants: The patient has taken no anticoagulant or antiplatelet agents. After reviewing the risks and benefits, the patient was deemed in satisfactory condition to undergo the procedure. After I obtained informed consent, the scope was passed under direct vision. Throughout the procedure, the patient's blood pressure, pulse, and oxygen saturations were monitored continuously. The Colonoscope was introduced through the anus and advanced to the cecum, identified by appendiceal orifice and ileocecal valve. The colonoscopy was performed without difficulty. The patient tolerated the procedure well. The quality of the bowel preparation was good. The ileocecal valve, appendiceal orifice, and rectum were photographed. Scope In: 8:05:15 AM Scope Withdrawal Time 0 hours 9 minutes 16 seconds Scope Out: 8:19:05 AM Total Procedure Duration Time 0 hours 13 minutes 50 seconds Findings: The entire examined colon appeared normal on direct and retroflexion views. Localized mild inflammation characterized by congestion (edema) was found at the appendiceal orifice. Biopsies were taken with a cold forceps for histology. Biopsies for histology were taken with a cold forceps from the entire colon for evaluation of microscopic colitis. Impression: - The entire examined colon is normal on direct and retroflexion views. - Localized mild inflammation was found at the appendiceal orifice. Biopsied. - Biopsies were taken with a cold forceps from the entire colon for evaluation of microscopic colitis. Recommendation: - Discharge patient to home. - Resume previous diet. - Continue present medications. - Await pathology results. - Repeat colonoscopy in 5 years for surveillance based on pathology results. Procedure Code(s): --- Professional --- 42858, Colonoscopy, flexible; with biopsy, single or multiple Diagnosis Code(s): --- Professional --- K52.9, Noninfective gastroenteritis and colitis, unspecified CPT copyright 2021 [employer]. All rights reserved. The codes documented in this report are preliminary and upon field organizer review may be revised to meet current compliance requirements. Rafiq Escobar MD 06/14/2023 8:25:01 AM This report has been signed electronically. Number of Addenda: 0 Note Initiated On: 06/14/2023 7:47 AM
--- NOTE | 2023-06-14 09:15 | SUR.PHASEII ---
picked up patient at main entrance.
== END 2023-06-14 09:15 | disposition home or self-care (01) ==
LOC: EN 06:57 → AC 06:59
PROVIDERS: PCP Internal Medicine; Referring Provider Internal Medicine; Visit Provider Surgery
PROC: 0DJD8ZZ Inspection of Lower Intestinal Tract, Via Natural or Artificial Opening Endoscopic (ICD-10-PCS; CPT 45378; principal; 2023-06-14 07:55)
DX: K52.9 Noninfective gastroenteritis and colitis, unspecified (principal); R14.0 Abdominal distension (gaseous); M79.7 Fibromyalgia; I10 Essential (primary) hypertension; Z79.899 Other long term (current) drug therapy; E78.00 Pure hypercholesterolemia, unspecified; K58.9 Irritable bowel syndrome, unspecified; R12 Heartburn
CPT/HCPCS: 45380; 88305; J7120; J2405

== ENCOUNTER → 2023-09-02 | Outpatient (CLI) | payer MEDICARE, OTHER, SELFPAY ==
[2023-09-04 15:08] LABS: Endomysial Antibody IgA Negative (Negative); Immunoglobulin A 124 mg/dL (64-422); t-Transglutaminase IgA 11 U/mL (0-3)
== END | disposition home or self-care (01) ==
LOC: MTLAB 15:17
PROVIDERS: PCP Internal Medicine; Referring Provider Internal Medicine Gastroenterology; Visit Provider Internal Medicine Gastroenterology
DX: R19.7 Diarrhea, unspecified (principal)
CPT/HCPCS: 36415; 82784; 83516; 86140; 86255